=== PATIENT | male | born 1955 | race Caucasian/White ===

== ENCOUNTER → 2017-12-04 08:35 | Outpatient (CLI) | payer OTHER, SELFPAY ==
[2017-12-04 09:37] LABS: AST(SGOT) 23 U/L (15-37); Alanine Aminotransfer ALT/SGPT 45 U/L (16-61); Albumin, Serum 3.8 g/dL (3.2-5.0); Alkaline Phosphatase 72 U/L (45-117); Bilirubin, Direct 0.13 mg/dL (0.00-0.30); Cholesterol 138 mg/dL (200); Globulin 3.7 g/dL (2.2-4.2); High Density Lipoprotein 35 mg/dL; Protein, Total 7.5 g/dL (6.4-8.2); Triglycerides 278 mg/dL; Very Low Density Lipoprotein 56 mg/dL (5-40)
== END ==
PROVIDERS: Family Provider Family Medicine; PCP Family Medicine; Visit Provider Internal Medicine Cardiovascular Disease
DX: E78.5 Hyperlipidemia, unspecified (principal); Z79.899 Other long term (current) drug therapy
CPT/HCPCS: 36415; 80061; 80076

== ENCOUNTER 2018-04-30 11:18 | Observation (INO) | payer OTHER, SELFPAY ==
[2018-04-30] VITALS (22 sets, daily range): BP systolic 119–194; BP diastolic 75–139; PULSE 49–94; RESP 14–22; TEMP 36.1–36.9; O2SAT 95–100; BMI 31.6; BMI 30.4; BMI 30.5
--- NOTE | 2018-04-30 11:26 | EKG12_ITS ---
Test Reason : CP Blood Pressure : / mmHG Vent. Rate : 058 BPM Atrial Rate : 058 BPM P-R Int : 186 ms QRS Dur : 098 ms QT Int : 418 ms P-R-T Axes : 027 032 058 degrees QTc Int : 410 ms Sinus bradycardia Otherwise normal ECG Confirmed by JOY BANDA, BRENNON ([id number]), school photograph editor SALEEM ZAMARRIPA ([id number]) on 05/03/2018 3:03:06 PM Referred By: HERMINIA Confirmed By:BRENNON HAMILTON MD
--- NOTE | 2018-04-30 11:26 | EKG12_ITS ---
Test Reason : CP Blood Pressure : / mmHG Vent. Rate : 056 BPM Atrial Rate : 056 BPM P-R Int : 182 ms QRS Dur : 098 ms QT Int : 416 ms P-R-T Axes : 035 043 048 degrees QTc Int : 401 ms Sinus bradycardia Otherwise normal ECG Confirmed by JOY BANDA, BRENNON ([id number]), primer expeditor and drier SALEEM ZAMARRIPA ([id number]) on 05/03/2018 3:03:23 PM Referred By: Confirmed By:BRENNON HAMILTON MD
--- NOTE | 2018-04-30 11:29 | RAD_ITS ---
STUDY: X-RAY CHEST REASON FOR EXAM: Male, 62 years old. Chest pain. Nausea. TECHNIQUE: AP upright portable view. COMPARISON: 07/30/2016. FINDINGS: No fractures of the sternal wires. The lungs are clear and expanded. There is no demonstrated pleural abnormality. Normal size heart. Normal mediastinum and lucy. Normal visualized pulmonary arteries. Normal visualized aortic arch and descending thoracic aorta. Mild dextroscoliosis of the lower thoracic spine. Normal visualized ribs, clavicles, and shoulders. There is no demonstrated abnormality of the visualized soft tissue structures of the upper abdomen. RAD/Chest 1 View (Portable) IMPRESSION: 1. No acute cardiopulmonary pathology. 2. No significant interval changes when compared to 07/30/2016. Electronically Signed: Jim Loyd MD at 12:08 EDT , Service support ,
--- NOTE | 2018-04-30 11:37 | ED.VISSUMM ---
- ER Visit Summary Date of Service: 04/30/18 Chief Complaint: Chest pain History of Present Illness: The patient is a 62 M with a history of coronary artery disease. He had triple bypass surgery and has 2 cardiac stents since that time. Patient states he has chronic cough which was worse this morning. He has been coughing up clear sputum. This morning had posttussive emesis. He developed chest pain that started under the left breast, and is now radiating towards the right side of the chest. Pain is not worse with deep breath. Physical Examination: Blood pressure is 160/80, temperature 97, heart rate 57, respiratory rate 22, pulse ox 99% on room air. Head and neck examination gross unremarkable. Heart is regular rate and rhythm. Lung sounds are clear. He does not have reproducible tenderness over the anterior chest. Abdomen is soft nontender. Lower extremity examination was no significant calf tenderness or edema. Test Results: EKG is sinus bradycardia 56 bpm with no acute ST change. It was repeated 20 minutes later and remains unchanged. Portable chest x-ray shows no acute pathology. There is no interval change compared to July 2016. CBC and chemistry studies unremarkable. Troponin less than 0.015. Emergency Department Course and Treatment: Patient was given aspirin, morphine, and Zofran. On repeat evaluation he is sitting in a bedside chair wrapped in blankets. He states he is still having pain across his lower chest is complaining of the cold air blowing on him. He will be given an additional dose of morphine. Will be admitted for cycling of cardiac enzymes and further cardiac evaluation. Treatment Plan: [] Disposition: Admit Impression: Chest pain This note was generated with [employer] dictation software. It may contain incorrect words, spelling, and punctuation that were not noted in review of the chart prior to signing ED Disposition - Plan for ED Patient: Chief Complaint: Chest Pain Referrals: Anna Camacho MD [Primary Care Provider] -
--- NOTE | 2018-04-30 11:55 | ED.RN ---
attempt x 2 by this nurse and 3 other attempts per other nurses
--- NOTE | 2018-04-30 11:59 | NURSING ---
LABS CLOTTED AND HEMOLIZED
[2018-04-30] MEDS: 0.9% Normal Saline 1,000 ML 150 ML IV (12:01)
[2018-04-30] MEDS: Aspirin 81 MG TAB.CHEW 324 MG PO (12:01)
[2018-04-30] MEDS: Morphine 4 MG/ML Syringe IV ×2 (12:01→13:04)
[2018-04-30] MEDS: Ondansetron 4 MG/2 ML Vial IV ×3 (12:01→15:45)
[2018-04-30 12:18] LABS: Absolute Lymphocyte Count 1.43 X10^3/ul (0.83-4.51); Absolute Neutrophil Count 7.3 X10^3/uL (2.0-7.7); Basophil# 0.01 X10^3/uL; Basophil% 0.1 % (0-1); Eosinophil# 0.04 X10^3/uL; Eosinophils% 0.4 % (0-5); Hemoglobin 15.1 g/dl (13.0-16.5); Lymphocyte # 1.43 X10^3/ul (4.0); Lymphocyte % 15.5 % (19-41); Mean Corp Hgb Conc 35.1 g/gl (32-36); Mean Corpuscular Hgb 30.4 pg (27.0-32.0); Mean Corpuscular Volume 86.7 fL (80-94); Mean Platelet Vol. 9.5 fl (6.2-12.0); Monocyte# 0.38 X10^3/uL; Monocyte% 4.1 % (0-10); Neutrophil # 7.32 X10^3/uL (2.7-7.7); Neutrophil % 79.7 % (47-70); Platelet Count 252 K/mm3 (150-450); RBC Distribution Width CV 12.9 % (11.6-14.6); RBC Distribution Width SD 40.2 fl (35.1-43.9); Red Blood Count 4.96 M/mm3 (4.6-6.2); White Blood Count 9.2 K/mm3 (4.4-11.0)
[2018-04-30 12:21] LABS: POSITIVE COUNT NO; POSITIVE DIFFERENTIAL NO; POSITIVE MORPHOLOGY NO
[2018-04-30 12:34] LABS: Anion Gap 10 (5-15); BUN 15 mg/dL (7-18); BUN/Creat Ratio 15.5 RATIO (10-20); Calcium,Total 8.8 mg/dL (8.5-10.1); Chloride 107 mmol/L (98-107); Creatinine, Serum 0.97 mg/dL (0.70-1.30); EST Glomerular Filtration Rate 83 mL/min (>60); Est Glom Filt Rate - Afr Amer 101 mL/min (>60); Estimated Creatinine Clearance 75.41 ml/min; Glucose 123 mg/dL (74-106); Potassium 3.8 mmol/L (3.5-5.1); Sodium Level 141 mmol/L (136-145)
--- NOTE | 2018-04-30 13:21 | NURSING ---
Pepper notified patient may transfer to PCU.
--- NOTE | 2018-04-30 13:58 | EKG12_ITS ---
Test Reason : Blood Pressure : / mmHG Vent. Rate : 051 BPM Atrial Rate : 051 BPM P-R Int : 190 ms QRS Dur : 098 ms QT Int : 462 ms P-R-T Axes : 024 038 051 degrees QTc Int : 425 ms Sinus bradycardia with sinus arrhythmia Otherwise normal ECG Confirmed by YOLIS BANDA, BELEN ([id number]), brands editor SALEEM ZAMARRIPA ([id number]) on 05/06/2018 2:13:08 PM Referred By: VILLA Confirmed By:BELEN LAGOS MD
--- NOTE | 2018-04-30 13:58 | NURSING ---
111 CP JESSICA OBS
[2018-04-30] MEDS: Ketorolac 30 MG/ML Syringe IV (14:04)
--- NOTE | 2018-04-30 14:06 | CT_ITS ---
STUDY: CTA CHEST REASON FOR EXAM: Male, 62 years old. Possible aortic dissection. RADIATION DOSAGE (If Supplied By Facility): CTDIvol = ( 16.63 ) mGy, DLP = ( 791.21 ) mGycm TECHNIQUE: The examination was performed with the intravenous administration of 100ML ml of Isovue 300 contrast material. Post-processing of the angiographic images was performed, with multiplanar reformation and 3D reconstruction. Individualized dose optimization techniques were used for this CT. COMPARISON: Comparison is made with prior chest radiograph done earlier today. FINDINGS: Normal enhancement of the main pulmonary artery and right and left pulmonary arteries. Normal enhancement of the bilateral peripheral pulmonary arteries. There is no demonstrated pulmonary embolism. There is atherosclerotic calcification of the aortic arch with tortuosity. There is no demonstrated aortic dissection. There are calcifications of the coronary arteries. Sternal cerclage wires and vascular clips are present from a prior sternotomy and coronary artery bypass graft procedure (CABG). There are visualized mediastinal lymph nodes, which are within normal size limits, and with normal morphology. Normal hilar regions. Normal visualized trachea and bronchi. The lungs are well expanded. Normal pulmonary parenchyma. Normal pleura. Normal chest wall structures. There are degenerative changes of thoracic spine. Small hiatal hernia. There is a 1.8 cm x 1.3 cm nodule in the left adrenal gland. This most likely represents a small adrenal adenoma. CT/CTA Chest W/WO Contrast IMPRESSION: No acute abnormality is seen. There is no evidence of aortic dissection. Electronically Signed: Ramy Travis MD at 15:03 EDT Tel [phone], Service support ,
--- NOTE | 2018-04-30 14:21 | NURSING ---
ICU 3
--- NOTE | 2018-04-30 14:26 | HP.PCM_ITS ---
Problem List (1) Chest pain at rest Status: Acute (2) Hypertension Status: Chronic (3) Hx of CABG Status: Chronic (4) Hx of heart artery stent Status: Chronic (5) Unstable angina Status: Acute History of Present Illness Date of Admission: 04/30/18 Chief Complaint: Chest pain at rest. Patient is a 62 year old M with a significant history of CAD status post CABG in 2008; and 2 stents in 2011 who follows outpatient with cardiology presenting with excruciating chest pain started the morning of admission. His pain is located mid sternum. He describes the pain to be severity 7 to 8 out of 10. There are no aggravating or relieving factors. The pain is present at rest. He describes his pain as sharp. Previous episodes of this type of chest pain has been relieved with food. However today's chest pain has not been relieved with food. He reports posttussive emesis. He reports severe diaphoresis. At the ED he was given 4 tablets of aspirin. He reports that he took his daily aspirin and daily Plavix at home today. At the ED the patient received a morphine for his pain without any relief. [] Past Medical History Past Medical History (Chronic Problems): Chronic Problems (Last Reviewed 12/14/17 @ 13:35 by Kimberlyn Wilkins) Hx of CABG (Chronic) Hx of heart artery stent (Chronic) Atherosclerotic heart disease of [place] coronary artery without angina pectoris (Chronic) CABG x3-MITCHELL to 1st DX, CHRISTINE from the MITCHELL to LAD, reverse SVG to the distal CX 02/15/09 Aortocoronary bypass status (Chronic ~02/15/09) CABG x3-MITCHELL to 1st DX, CHRISTINE from the MITCHELL to LAD, reverse SVG to the distal CX 02/15/09 Presence of stent in coronary artery (Chronic ~10/11/12) PTCA/DRAGAN of the OM2 and of the mid CX 10/11/12 Hypertension (Chronic) Hyperlipidemia (Chronic) Medical History: Medical History (Last Reviewed 12/14/17 @ 13:35 by Kimberlyn Wilkins) Atherosclerotic heart disease of [place] coronary artery without angina pectoris (Chronic) I25.10 CABG x3-MITCHELL to 1st DX, CHRISTINE from the MITCHELL to LAD, reverse SVG to the distal CX 02/15/09 Long-term use of high-risk medication (Acute) Z79.899 Presence of stent in coronary artery (Chronic) Onset Date: ~10/11/12 Z95.5 PTCA/DRAGAN of the OM2 and of the mid CX 10/11/12 Syncope and collapse (Acute) R55 Hypertension (Chronic) I10 Hyperlipidemia (Chronic) E78.5 GERD (gastroesophageal reflux disease) K21.9 Hiatal hernia K44.9 History of tobacco use Z87.891 Gastroesophageal reflux disease (Inactive) K21.9 History of tobacco use (Inactive) Z87.891 Allergies Tetanus Vaccines and Toxoid [Tetanus Vaccines & Toxoid] Allergy (Unknown, Verified 04/30/18 11:24) Unknown pt. was a child & does not remember prochlorperazine Adverse Reaction (Verified 04/30/18 11:24) Vomiting Home Medications: Ambulatory Orders Medication Instructions Recorded Loratadine [Claritin] 10 mg PO DAILY PRN 10/24/13 azelastine 0.15 % (205.5 mcg) 1 spray INTRANASAL BID 12/11/17 nasal spray fluticasone 50 mcg/actuation nasal 50 mcg INTRANASAL BID PRN 12/14/17 spray,suspension ipratropium bromide 0.03 % nasal 2 spray INTRANASAL BID-TID PRN 12/14/17 spray nitroglycerin 0.4 mg sublingual 0.4 mg SUBLINGUAL Q5M PRN #25 tab 12/14/17 tablet Aspirin E.C. [Ecotrin] 81 mg PO DAILY 04/30/18 Atorvastatin Calcium [Lipitor] 40 mg PO QDAY 04/30/18 Clopidogrel Bisulfate [Plavix] 75 mg PO DAILY 04/30/18 Isosorbide Mononitrate [Imdur] 30 mg PO DAILY 04/30/18 Lisinopril [Zestril] 10 mg PO DAILY 04/30/18 Metoprolol Tartrate [Lopressor 25 mg PO BID 04/30/18 (beta elmer)] Surgical History: Surgical History (Last Reviewed 12/14/17 @ 13:35 by Kimberlyn Wilkins) Aortocoronary bypass status (Chronic) Onset Date: ~02/15/09 Z95.1 CABG x3-MITCHELL to 1st DX, CHRISTINE from the MITCHELL to LAD, reverse SVG to the distal CX 02/15/09 History of hernia repair Z98.890, Z87.19 Smoking Status: Former smoker Tobacco Use: Non-smoker Alcohol: Occasional Drugs: Marijuana - *Family History Maternal Family History: Family History (Last Reviewed 12/14/17 @ 13:35 by Kimberlyn Wilkins) Father Hypertension Mother Hypertension Myocardial infarction Brother Hypertension Sister Hypertension Review of Systems Constitutional: Reports: - - Diaphoresis HEENT: Denies: Head Aches, Sinus Congestion, Sinus Drainage Cardiovascular: Reports: Chest Pain Respiratory: Reports: Cough Gastrointestinal: Reports: Nausea, Vomiting Genitourinary: Denies: Dysuria Musculoskeletal: Denies: Joint Pain, Joint Tenderness Skin: Denies: Rash, Wounds Neurological: Reports: Balance problems Psychiatric: Reports: Anxiety Hematologic/ Lymphatic: Reports: Adenopathy VTE Information - Inpt Only VTE Present on Admission: No VTE Mechan Device Prophylaxis: None VTE Pharm Prophylaxis ordered?: Yes Patient Problems: Active and Suspected Problems (Last Reviewed 12/14/17 @ 13:35 by Kimberlyn Wilkins) Chest pain at rest (Acute) Unstable angina (Acute) - Physical Exam General: Alert, Oriented x3, Cooperative HEENT: Atraumatic, PERRLA, EOMI, Normocephalic Neck: Supple, No JVD, Negative Carotid Bruits Lungs: Clear to auscultation, Normal air movement Cardiovascular: Regular rate, No murmurs, - - Tender at Xiphoid process Abdomen: Bowel Sounds Present, Soft, Non Tender Extremities: No edema, Capillary Refill Less than 3 Seconds Skin: No rashes, No breakdown Musculoskeletal: No Tenderness to Palpation of Joints or Extremities Neurological: Cranial nerves II-XII grossly intact Psych/Mental Status: Anxious Vital Signs Temp Pulse Resp BP Pulse Ox 97 F L 64 18 172/92 H 95 04/30/18 11:19 04/30/18 13:50 04/30/18 12:36 04/30/18 13:50 04/30/18 12:36 Assessment/Plan All Active Problems (Last Reviewed 12/14/17 @ 13:35 by Kimberlyn Wilkins) Chest pain at rest (Acute) Unstable angina (Acute) Long-term use of high-risk medication (Acute) Syncope and collapse (Acute) This is this is a 61 year old man with a significant history of CAD status post CABG and stents who presented because of excruciating chest pain at rest and with a posttussive emesis. 1. Unstable Angina CT scan with contrast was unremarkable for dissection. ISAAC score of UA is 4 points. Troponin so far unremarkable. EKG so far unremarkable. Morphine and nitroglycerin SL initially produced no relieve. Toradol and GI cocktail was not helpful to patient Cardiology is following. Recommended heparin drip and nitroglycerin drip. Ordered as recommended. A1C and lipid profile ordered Urine drug screen Fasting lipids Continue Lipitor, metoprolol and lisinopril. Will hold off nitro SL and Imdur in the setting of Nitro drip. Continue morphine and aspirin. As needed oxygen. Ultrasound of gallbladder and liver function tests ordered to rule out gallbladder disease. 2.Hypertension Continue lisinopril and metoprolol Nitroglycerin drip as above. 3.DVT prophylaxis Not indicated in the setting of Heparin therapeutic infusion. Code Visit OBSV E&M: [id number] Initial observation care L3
[2018-04-30] MEDS: Morphine 2 MG/ML Syringe IV (15:43)
[2018-04-30 16:14] LABS: Hemoglobin A1c 5.9 % (4.2-6.3)
[2018-04-30 16:29] LABS: Amphetamine Urine VISTA NEGATIVE (<1000 ng/mL); Barbiturate Urine VISTA NEGATIVE (< 200 ng/mL); Benzodiazepine Urine VISTA NEGATIVE (< 200 ng/mL); Cocaine Urine VISTA NEGATIVE (< 300 ng/mL); Ecstacy Urine VISTA NEGATIVE (< 500 ng/mL); Methadone Urine VISTA NEGATIVE (< 300 ng/mL); PCP Urine VISTA NEGATIVE (< 25 ng/mL); THC Urine VISTA POSITIVE (< 50 ng/mL); Vista UDS pH Range 7
--- NOTE | 2018-04-30 16:36 | US_ITS ---
STUDY: ABDOMINAL ULTRASOUND - RIGHT UPPER QUADRANT REASON FOR VISIT: Male, 62 years old. Rule out cholelithiasis TECHNIQUE: Ultrasound evaluation of the right upper quadrant was performed with real-time and static pichardo-scale imaging. TECHNICAL QUALITY: Limited. Examination limited by bowel gas. COMPARISON: None. FINDINGS: Liver: The liver measures 20 cm. There is increased echogenicity consistent with fatty infiltration. The bile ducts are within normal limits. There is hepatic color flow. The direction of portal flow is hepatopetal. There appears to be a small anechoic liver cyst in the right lobe measuring 1.2 x 1.0 x 0.7 cm Gallbladder: Normal distended gallbladder. The gallbladder wall measures 2 mm. There is a negative sonographic Clemente's sign. There is no pericholecystic fluid. There are no gallstones. Common Bile Duct (C.B.D.): The common bile duct measures 6 mm. Pancreas: Normal size of the head, body and tail of the pancreas. There is normal echogenicity of the pancreas. There is no demonstrated pancreatic mass or cyst. Right Kidney: Normal size of the right kidney. The right kidney measures 11.9 cm. Normal renal cortex. The right cortex measures 2.1 cm. There is no demonstrated renal mass or cyst. There is no right hydronephrosis. US/Gallbladder IMPRESSION: No evidence of cholelithiasis. No evidence of acute cholecystitis. Remainder as above Electronically Signed: Lavelle Escoto DO at 18:40 EDT Tel , Service support ,
[2018-04-30 18:07] LABS: International Normalized Ratio 1.1; Prothrombin Time (Protime)PT. 13.7 SECONDS (11.7-14.9)
[2018-04-30 18:08] LABS: Partial Thromboplast Time 27.5 Seconds (24.1-36.2)
[2018-04-30 18:26] LABS: AST(SGOT) 23 U/L (15-37); Alanine Aminotransfer ALT/SGPT 38 U/L (16-61); Albumin, Serum 4.3 g/dL (3.2-5.0); Alkaline Phosphatase 68 U/L (45-117); Globulin 3.9 g/dL (2.2-4.2); Protein, Total 8.2 g/dL (6.4-8.2)
[2018-04-30] MEDS: Heparin Injection (Vial) 5,000 UNIT/ML VIAL 6000 UNIT IV (18:35)
[2018-04-30] MEDS: HEPARIN/D5w 25,000 UNITS 25,000 UNITS/250 ML IV.SOLN. 12 UNITS IV (18:39)
--- NOTE | 2018-04-30 20:45 | NURSING ---
Dr. De Souza called and talked to this nurse and received update on pt. Pt. doing well , no further CP on nitro gtt.
[2018-04-30] MEDS: Metoprolol Tartrate 25 MG Tablet PO (21:36)
[2018-04-30] MEDS: Atorvastatin Calcium 40 MG Tablet PO (21:36)
[2018-05-01] VITALS (31 sets, daily range): BP systolic 121–148; BP diastolic 65–95; PULSE 52–64; RESP 12–22; TEMP 36.4–37.1; O2SAT 95–100
[2018-05-01 01:18] LABS: Partial Thromboplast Time 50.3 Seconds (24.1-36.2)
[2018-05-01] MEDS: Heparin Injection (Vial) 5,000 UNIT/ML VIAL IV (02:09)
[2018-05-01] MEDS: Aspirin E.C. 81 MG Tablet PO (08:55)
[2018-05-01] MEDS: Clopidogrel Bisulfate 75 MG Tablet PO (08:56)
[2018-05-01] MEDS: Lisinopril 10 MG Tablet PO (08:56)
[2018-05-01 08:58] LABS: Hematocrit 39.9 % (40-54); Hemoglobin 13.9 g/dl (13.0-16.5); Mean Corp Hgb Conc 34.8 g/gl (32-36); Mean Corpuscular Hgb 30.7 pg (27.0-32.0); Mean Corpuscular Volume 88.1 fL (80-94); Mean Platelet Vol. 9.6 fl (6.2-12.0); Platelet Count 232 K/mm3 (150-450); RBC Distribution Width CV 13.2 % (11.6-14.6); Red Blood Count 4.53 M/mm3 (4.6-6.2); White Blood Count 10.2 K/mm3 (4.4-11.0)
[2018-05-01 09:04] LABS: Scan Indicated on CBC? Y/N NO
[2018-05-01 09:06] LABS: Partial Thromboplast Time 53.7 Seconds (24.1-36.2)
[2018-05-01 09:32] LABS: Anion Gap 8 (5-15); BUN 17 mg/dL (7-18); BUN/Creat Ratio 19.9 RATIO (10-20); Calcium,Total 8.5 mg/dL (8.5-10.1); Chloride 104 mmol/L (98-107); Cholesterol 150 mg/dL (200); Creatinine, Serum 0.86 mg/dL (0.70-1.30); EST Glomerular Filtration Rate 96 mL/min (>60); Est Glom Filt Rate - Afr Amer 116 mL/min (>60); Estimated Creatinine Clearance 85.06 ml/min; Glucose 109 mg/dL (74-106); High Density Lipoprotein 34 mg/dL; Potassium 3.7 mmol/L (3.5-5.1); Sodium Level 140 mmol/L (136-145); Triglycerides 158 mg/dL; Very Low Density Lipoprotein 32 mg/dL (5-40)
[2018-05-01] MEDS: Metoprolol Tartrate 25 MG Tablet PO ×2 (10:59→21:48)
--- NOTE | 2018-05-01 11:11 | CON.PCM_ITS ---
Problem List (1) Unstable angina Status: Acute Reason for Consult Date of Consultation: 05/01/18 History of Present Illness: The patient is a 62 year old M with past medical history significant for coronary artery disease status post coronary artery bypass graft surgery with MITCHELL graft to the left anterior descending artery, a free CHRISTINE off the MITCHELL graft to the diagonal branch and an SVG graft to the totally occluded right coronary artery. He has had repeat angiography done in 2011. At that time, he had drug-eluting stents placed to his left circumflex and obtuse marginal branch. For the past few months, the patient has been having anterior chest discomfort. According to the patient, this is mostly the first thing when he wakes up in the morning. Relieved by itself. Not related to exertion. No exertional component. No associated shortness of breath. Yesterday, the patient had another such episode. However this time it was prolonged. Constant discomfort for a few hours. According to the patient, his discomfort is mostly relieved but he could still feel it. X Per patient, he has had similar symptoms in the past. At one time, when he had the symptoms, he had cardiac workup done and ended up having a coronary artery bypass graft surgery. Later on, he has had similar symptoms and had percutaneous intervention to his left circumflex and obtuse marginal done. With every revascularization, the symptoms tend to disappear for a few years. [ ] Past Medical History Allergies/Adverse Reactions: Allergies Tetanus Vaccines and Toxoid [Tetanus Vaccines & Toxoid] Allergy (Unknown, Verified 04/30/18 11:24) Unknown pt. was a child & does not remember prochlorperazine Adverse Reaction (Verified 04/30/18 11:24) Vomiting Home Medications: Ambulatory Orders Medication Instructions Recorded Loratadine [Claritin] 10 mg PO DAILY PRN 10/24/13 azelastine 0.15 % (205.5 mcg) 1 spray INTRANASAL BID 12/11/17 nasal spray fluticasone 50 mcg/actuation nasal 50 mcg INTRANASAL BID PRN 12/14/17 spray,suspension ipratropium bromide 0.03 % nasal 2 spray INTRANASAL BID-TID PRN 12/14/17 spray nitroglycerin 0.4 mg sublingual 0.4 mg SUBLINGUAL Q5M PRN #25 tab 12/14/17 tablet Aspirin E.C. [Ecotrin] 81 mg PO DAILY 04/30/18 Atorvastatin Calcium [Lipitor] 40 mg PO QDAY 04/30/18 Clopidogrel Bisulfate [Plavix] 75 mg PO DAILY 04/30/18 Isosorbide Mononitrate [Imdur] 30 mg PO DAILY 04/30/18 Lisinopril [Zestril] 10 mg PO DAILY 04/30/18 Metoprolol Tartrate [Lopressor 25 mg PO BID 04/30/18 (beta elmer)] Past Medical History (Chronic Problems): Chronic Problems (Last Reviewed 12/14/17 @ 13:35 by Kimberlyn Wilkins) Hx of CABG (Chronic) Hx of heart artery stent (Chronic) Atherosclerotic heart disease of [place] coronary artery without angina pectoris (Chronic) CABG x3-MITCHELL to 1st DX, CHRISTINE from the MITCHELL to LAD, reverse SVG to the distal CX 02/15/09 Aortocoronary bypass status (Chronic ~02/15/09) CABG x3-MITCHELL to 1st DX, CHRISTINE from the MITCHELL to LAD, reverse SVG to the distal CX 02/15/09 Presence of stent in coronary artery (Chronic ~10/11/12) PTCA/DRAGAN of the OM2 and of the mid CX 10/11/12 Hypertension (Chronic) Hyperlipidemia (Chronic) - *Family History Maternal Family History: Family History (Last Reviewed 12/14/17 @ 13:35 by Kimberlyn Wilkins) Father Hypertension Mother Hypertension Myocardial infarction Brother Hypertension Sister Hypertension Smoking Status: Former smoker Tobacco Use: Non-smoker Alcohol: Occasional Drugs: Marijuana Review of Systems - Review of Systems General: Denies: Fever, Chills HEENT: Denies: Head Aches Cardiovascular: Reports: Chest Discomfort at Rest. Denies: Shortness of Breath at Rest, Shortness of Breath with Exertion, Orthopnea, PND Gastrointestinal: Reports: Emesis - Yesterday with chest discomfort. Denies: Hematemesis, Melena Neurological: Denies: History of TIA, History of CVA Hematologic/ Lymphatic: Denies: Easy Brusing, Easy Bleeding Subjectve: Comfortable. No apparent distress Objective: Vital Signs Temp Pulse Resp BP Pulse Ox 98.5 F 60 18 138/79 H 100 05/01/18 10:00 05/01/18 10:59 05/01/18 10:00 05/01/18 10:00 05/01/18 10:00 Oxygen Flow Rate (L/min) 2 Oxygen Delivery Method Nasal Cannula Weight: 90.9 kg Body Mass Index (BMI) 30.4 Intake and Output for Last 24 Hours 04/29/18 04/30/18 05/01/18 23:59 23:59 23:59 Intake Total 899.8 / 899.8 0 / 0 Output Total 200 / 200 Balance 699.8 / 699.8 0 / 0 General: Healthy Appearing, Awake, Alert, Oriented x 3, No Acute Distress HEENT: Atraumatic, Normocephalic Oral: Moist Mucosa Neck: Supple, No JVD Lungs: Clear to auscultation Cardiovascular: Regular Rhythm, Normal S1, Normal S2 Abdomen: Bowel Sounds Present, Soft, Non Tender Extremities: No edema Neurological: No Focal Motor or Sensory Deficit Psych/Mental Status: Appropriate 04/30/18 15:03: Troponin I < 0.015 04/30/18 17:25: Troponin I < 0.015 04/30/18 17:25: PT 13.7, INR 1.1, APTT 27.5 04/30/18 17:25: Total Bilirubin 1.10 H, Direct Bilirubin 0.20 05/01/18 00:50: APTT 50.3 H 05/01/18 08:40: WBC 10.2, RBC 4.53 L, Hgb 13.9, Hct 39.9 L, MCV 88.1, MCH 30.7, MCHC 34.8, RDW 13.2, RDW Differential 42.0, Plt Count 232, MPV 9.6 05/01/18 08:40: Sodium 140, Potassium 3.7, Chloride 104, Carbon Dioxide 28.0, Anion Gap 8, BUN 17, Creatinine 0.86, Est GFR (MDRD) Af Amer 116, Est GFR (MDRD ) Non-Af 96, BUN/Creatinine Ratio 19.9, Glucose 109 H, Calcium 8.5, Triglycerides 158, Cholesterol 150, LDL Cholesterol 84, VLDL Cholesterol 32, HDL Cholesterol 34 L 05/01/18 08:40: APTT 53.7 H Rhythm: EKG: Normal sinus rhythm. No ischemic changes ECHO: Stress Test: Cardiac Cath: PCI: CT Surgery: Holter monitor: EPS: PPM: CXR: Chest CT Scan: Assessment/Plan 1. Episode of prolonged chest discomfort. Even though troponins are negative, patient's history strongly suggestive of cardiac component. It is noted that previous such episodes have led to findings of coronary ischemia and revascularization. I therefore offered patient cardiac catheterization with coronary angiography and possible revascularization. Risks benefits and alternatives explained. He understands and wishes to proceed 2. Unstable angina. See #1 above 3. Hypertension 4. Dyslipidemia 5. Small adrenal adenoma noted on CT scan. Follow as per internal medicine
--- NOTE | 2018-05-01 12:26 | CM.UR ---
In-network hospitals in case transfer is necessary. Per [email or web address] the following facilities are in-network (but not limited to): [facility] Contact case management with any additional questions.
[2018-05-01] MEDS: 0.9% NaCl Peripheral Flush Adult/Peds IV (13:00)
--- NOTE | 2018-05-01 14:34 | CL.D_ITS ---
Patient Name: YOLY FOWLER Study Date: 05/01/2018 Performing: Ward De Souza MD Ht: 68 inches 173 cm : 1955 Wt: 200.9 lbs 91 kg Age: 62 Gender: male BSA: 2.05 PROCEDURE(S) PERFORMED II61-PUF/COR/CABG CLINICAL PROFILE AND INDICATIONS Heart Failure: None Angina Classification Anginal Classification w/in 2 Weeks: CCS IV CAD Presentations: Unstable angina. CONCLUSIONS [place] LAD 95% supplying major septal electrical engineering manager; 100% Mid LAD; MITCHELL to LAD patent Free CHRISTINE (from MITCHELL) to D1 patent 50% Prox LCX. Stents to Mid LCX and Prox OM2 patent 100% Prox/Mid RCA. SVG to RCA 50% eccentric lesion RECOMMENDATIONS Maximize medical treatment If still symptomatic after maximal medical treatment, then consider PCI to Mid LAD DESCRIPTION OF PROCEDURE The patient arrived to the procedure lab. The risks and benefits of the procedure as well as a full d escription of our services here and current unavailability of surgical backup were fully explained to the patient and/or their significant other prior to the catheterization. The Timeout was completed, verifying the correct patient and procedure. The patient's procedural site was prepped and draped in the usual fashion. Local anesthetic was given subcutaneously to right radial region with Lidocaine 2% . Using a modified Seldinger technique, arterial access was obtained via the right radial artery, a 6 Fr sheath was inserted. Left Coronary Artery selective angiography was performed in multiple views u sing a 5 Fr. 4.0 [place] catheter. Right Coronary Artery selective angiography was then performed in mu ltiple views using a 5 Fr. 4.0 [place] catheter. Saphenous Vein graft to the RCA selective angiography was performed in multiple views using a 6 Fr. MPB2. Left internal mammary artery graft to the LAD lary ective angiography was performed in multiple views using a 5 Fr. IM catheter.The arterial sheath was pulled and a TR Band was applied for hemostasis 14cc air CORONARY ANGIOGRAPHY DOMINANCE: Right Dominant LEFT MAIN: No significant angiograpic disease LEFT ANTERIOR DECENDING ARTERY: 95% Mid tandom lesions. 100% immediatley after take off of major sept al electrical engineering manager CIRCUMFLEX ARTERY: 50% Prox. Stent to Mid LCX widely patent. Stent to OM2 patent RIGHT CORONARY ARTERY: 100% Mid GRAFTS: MITCHELL graft to the LAD patent. Free CHRISTINE (from MITCHELL) to D1 patent Saphenous Vein graft to the RCA 40-50% eccentric lesion COMPLICATIONS No Complications PROCEDURE MEDICATIONS Versed 1 mg IV Fentanyl 25 mcg IV Oxygen: 2 L/min via nasal cannula Heparin given IA 05/01/2018 13:32:55 Verapamil 2.5mg, Ntg 100mcgs, 2000 units of Heparin given IA 05/01/2018 13:32:55 SUMMARY OF HEMODYNAMIC DATA Time AIR REST ECG 13:19:11 AO 116/67 (87) SA 13:34:53 Signed By Ward De Souza MD On 05/01/2018 14:33:34 Ward De Souza MD
--- NOTE | 2018-05-01 16:46 | PN_ITS ---
Patient Problems: Active and Suspected Problems (Last Reviewed 12/14/17 @ 13:35 by Kimberlyn Wilkins) Chest pain at rest (Acute) Unstable angina (Acute) Subjective: Patient while on heparin and nitroglycerin drip stated that his chest pain has decreased but it is noticeable. Vitals/I&O's: Vital Signs Temp Pulse Resp BP Pulse Ox 97.7 F L 53 L 17 123/88 H 96 05/01/18 16:00 05/01/18 16:00 05/01/18 16:00 05/01/18 16:00 05/01/18 16:00 Oxygen Flow Rate (L/min) 2 Oxygen Delivery Method Room Air Weight: 90.9 kg Body Mass Index (BMI) 30.4 Intake and Output for Last 24 Hours 04/29/18 04/30/18 05/01/18 23:59 23:59 23:59 Intake Total 899.8 / 899.8 190 / 190 Output Total 200 / 200 520 / 520 Balance 699.8 / 699.8 -330 / -330 General: Alert, Oriented x3, Cooperative HEENT: Atraumatic, PERRLA, EOMI, Normocephalic Neck: Supple, No JVD, Negative Carotid Bruits Lungs: Clear to auscultation, Normal air movement Cardiovascular: No murmurs, Bradycardic, No rub noted, No Gallop Abdomen: Bowel Sounds Present, Soft, Non Tender Extremities: No edema, Capillary Refill Less than 3 Seconds Skin: No rashes, No breakdown Musculoskeletal: No Tenderness to Palpation of Joints or Extremities Neurological: Cranial nerves II-XII grossly intact Laboratory Results 04/30/18 17:25: Troponin I < 0.015 04/30/18 17:25: PT 13.7, INR 1.1, APTT 27.5 04/30/18 17:25: Total Bilirubin 1.10 H, Direct Bilirubin 0.20, AST 23, ALT 38, Alkaline Phosphatase 68, Total Protein 8.2, Albumin 4.3, Globulin 3.9 05/01/18 00:50: APTT 50.3 H 05/01/18 08:40: WBC 10.2, RBC 4.53 L, Hgb 13.9, Hct 39.9 L, MCV 88.1, MCH 30.7, MCHC 34.8, RDW 13.2, RDW Differential 42.0, Plt Count 232, MPV 9.6 05/01/18 08:40: Sodium 140, Potassium 3.7, Chloride 104, Carbon Dioxide 28.0, Anion Gap 8, BUN 17, Creatinine 0.86, Estim Creat Clear Calc 85.06, Est GFR ( MDRD) Af Amer 116, Est GFR (MDRD) Non-Af 96, BUN/Creatinine Ratio 19.9, Glucose 109 H, Calcium 8.5, Triglycerides 158, Cholesterol 150, LDL Cholesterol 84, VLDL Cholesterol 32, HDL Cholesterol 34 L 05/01/18 08:40: APTT 53.7 H Current Medications Aspirin (Ecotrin) 81 mg PO DAILYCM [facility] Last Admin: 05/01/18 08:55 Dose: 81 mg Atorvastatin Calcium (Lipitor) 40 mg PO HS [facility] Last Admin: 04/30/18 21:36 Dose: 40 mg Azelastine HCl (Astelin) 1 spray NASAL BID [facility] Last Admin: 05/01/18 08:58 Dose: Not Given Clopidogrel Bisulfate (Plavix) 75 mg PO DAILY [facility] Last Admin: 05/01/18 08:56 Dose: 75 mg Fluticasone Propionate (Flonase Nasal [place]) 1 spray NASAL BID PRN PRN Reason: ALLERGIES Heparin Sodium (Porcine) (Heparin Na) 0 unit IV UD PRN PRN Reason: Protocol Last Admin: 05/01/18 02:09 Dose: 1,000 units Ipratropium [place] (Atrovent Nasal [place] (G)) 2 spray NASAL TID PRN PRN Reason: ALLERGIES Isosorbide Mononitrate (Imdur) 60 mg PO DAILY [facility] Lisinopril (Zestril) 10 mg PO DAILY [facility] Last Admin: 05/01/18 08:56 Dose: 10 mg Loratadine (Claritin) 10 mg PO DAILY PRN PRN Reason: ALLERGIES Magnesium Hydroxide (Milk Of Magnesia) 30 ml PO DAILY PRN PRN Reason: Constipation Metoprolol Tartrate (Lopressor (Beta Antonio)) 25 mg PO BID [facility] Last Admin: 05/01/18 10:59 Dose: 25 mg Morphine Sulfate () 2 mg IV Q2H PRN PRN PRN Reason: PAIN Last Admin: 04/30/18 15:43 Dose: 2 mg Nutritional Formula (Lactose Free) (Ensure Clear) 120 ml PO 4X/DAY [facility] Ondansetron HCl (Zofran) 4 mg IV Q6H PRN PRN PRN Reason: NAUSEA/VOMITING Last Admin: 04/30/18 15:45 Dose: 4 mg Pantoprazole Sodium (Protonix) 20 mg PO DAILY [facility] Ranolazine (Ranexa) 500 mg PO BID [facility] Sodium Chloride () 5 - 30 ml IV UD PRN PRN Reason: SALINE FLUSH Last Admin: 05/01/18 13:00 Dose: 10 ml Medical Necessity - Tobacco Use Smoking Status: Former smoker Tobacco Use: Non-smoker Assessment/Plan All Active Problems (Last Reviewed 12/14/17 @ 13:35 by Kimberlyn Wilkins) Chest pain at rest (Acute) Unstable angina (Acute) Long-term use of high-risk medication (Acute) Syncope and collapse (Acute) This is this is a 61 year old man with a significant history of CAD status post CABG and stents who presented because of excruciating chest pain at rest and with a posttussive emesis. 1. Unstable Angina CT scan with contrast was unremarkable for dissection. ISAAC score of UA 4 points. Troponin so far unremarkable. EKG so far unremarkable. Ultrasound of gall bladder unremarkable Morphine and nitroglycerin SL initially produced no relieve. Toradol and GI cocktail was not helpful to patient Cardiology is following. Patient has been on heparin drip and nitroglycerin drip. Cardiology will take patient in for a cardiac cath A1C was unremarkable Fasting lipids not remarkable Continue Lipitor, metoprolol and lisinopril. Will hold off nitro SL and Imdur in the setting of Nitro drip. Continue morphine and aspirin. As needed oxygen. 2.Hypertension Continue lisinopril and metoprolol Nitroglycerin drip as above. 3.DVT prophylaxis Not indicated in the setting of Heparin therapeutic infusion.
[2018-05-01] MEDS: Ranolazine 500 MG Tablet PO ×2 (17:00→21:49)
[2018-05-01] MEDS: Pantoprazole Sodium 20 MG Tablet PO (17:00)
[2018-05-01] MEDS: Isosorbide Mononitrate 60 MG Tablet PO (17:48)
[2018-05-01] MEDS: Azelastine HCl NASAL.SRY 1 SPRAY NASAL (21:46)
[2018-05-01] MEDS: Atorvastatin Calcium 40 MG Tablet PO (21:48)
[2018-05-02] VITALS (8 sets, daily range): BP systolic 104–122; BP diastolic 57–74; PULSE 47–60; RESP 16–19; TEMP 36.4–36.9; O2SAT 94–97
[2018-05-02 05:49] LABS: Absolute Lymphocyte Count 2.44 X10^3/ul (0.83-4.51); Absolute Neutrophil Count 4.9 X10^3/uL (2.0-7.7); Basophil# 0.01 X10^3/uL; Basophil% 0.1 % (0-1); Eosinophil# 0.09 X10^3/uL; Eosinophils% 1.1 % (0-5); Hemoglobin 13.8 g/dl (13.0-16.5); Lymphocyte # 2.44 X10^3/ul (4.0); Lymphocyte % 29.9 % (19-41); Mean Corp Hgb Conc 33.7 g/gl (32-36); Mean Corpuscular Hgb 30.2 pg (27.0-32.0); Mean Corpuscular Volume 89.7 fL (80-94); Mean Platelet Vol. 9.8 fl (6.2-12.0); Monocyte# 0.67 X10^3/uL; Monocyte% 8.2 % (0-10); Neutrophil # 4.94 X10^3/uL (2.7-7.7); Neutrophil % 60.6 % (47-70); POSITIVE COUNT NO; POSITIVE DIFFERENTIAL NO; POSITIVE MORPHOLOGY NO; Platelet Count 254 K/mm3 (150-450); RBC Distribution Width CV 13.3 % (11.6-14.6); Red Blood Count 4.57 M/mm3 (4.6-6.2); White Blood Count 8.2 K/mm3 (4.4-11.0)
[2018-05-02 06:08] LABS: Anion Gap 9 (5-15); BUN 17 mg/dL (7-18); BUN/Creat Ratio 18.7 RATIO (10-20); Calcium,Total 8.4 mg/dL (8.5-10.1); Chloride 107 mmol/L (98-107); Creatinine, Serum 0.91 mg/dL (0.70-1.30); EST Glomerular Filtration Rate 89 mL/min (>60); Est Glom Filt Rate - Afr Amer 108 mL/min (>60); Estimated Creatinine Clearance 80.38 ml/min; Glucose 101 mg/dL (74-106); Potassium 4.4 mmol/L (3.5-5.1); Sodium Level 141 mmol/L (136-145)
--- NOTE | 2018-05-02 10:22 | PCM.DC ---
- Discharge Diagnoses Current Active Problems: Current Active and Chronic Problems (Last Reviewed 12/14/17 @ 13:35 by Kimberlyn Wilkins) Chest pain at rest (Acute) Hx of CABG (Chronic) Hx of heart artery stent (Chronic) Unstable angina (Acute) Reason(s) for Visit for Discharge Instructions: Unstable Angina You will use the following diet at home:: Cardiac Your food should be the consistency of: Regular Discharge Activity: Return to Normal Activity Call your doctor if your incision/area has: Increased Pain/ Swelling, Increased Redness Call your doctor if you observe: Shortness of breath, Dizziness, Uncontrolled pain Additional Instructions: If your chest pain persist notify your primary care doctor and restrictive preparation operator. A Stent in your heart vessel may be considered at that time. Allergies/Adverse Reactions: Allergies Tetanus Vaccines and Toxoid [Tetanus Vaccines & Toxoid] Allergy (Unknown, Verified 04/30/18 11:24) Unknown pt. was a child & does not remember prochlorperazine Adverse Reaction (Verified 04/30/18 11:24) Vomiting Medications to take at Discharge Loratadine [Claritin] 10 mg PO DAILY PRN 10/24/13 azelastine 0.15 % (205.5 mcg) nasal spray 1 spray INTRANASAL BID 12/11/17 fluticasone 50 mcg/actuation nasal spray,suspension 50 mcg INTRANASAL BID PRN 12/14/17 ipratropium bromide 0.03 % nasal spray 2 spray INTRANASAL BID-TID PRN 12/14/17 nitroglycerin 0.4 mg sublingual tablet 0.4 mg SUBLINGUAL Q5M PRN #25 tab 12/14/17 Aspirin E.C. [Ecotrin] 81 mg PO DAILY 04/30/18 Atorvastatin Calcium [Lipitor] 40 mg PO QDAY 04/30/18 Clopidogrel Bisulfate [Plavix] 75 mg PO DAILY 04/30/18 Lisinopril [Zestril] 10 mg PO DAILY 04/30/18 Metoprolol Tartrate [Lopressor (beta [place])] 25 mg PO BID 04/30/18 Isosorbide Mononitrate [Imdur] 60 mg PO DAILY #30 tab 05/02/18 Ranolazine [Ranexa] 500 mg PO BID #60 tab 05/02/18 The following prescriptions were given: Isosorbide Mononitrate [Imdur] 60 mg PO DAILY #30 tab Ranolazine [Ranexa] 500 mg PO BID #60 tab Primary Care Physician: Anna Camacho MD [Primary Care Provider] - Please follow up with your Primary Care Physician in: 3-7 days Test Results: Test results from this visit will be discussed in further detail at your follow-up appointment, if applicable. Please Follow Up With: Daniel Goodman MD When: 3-7 days
[2018-05-02] MEDS: Azelastine HCl NASAL.SRY 1 SPRAY NASAL (10:24)
[2018-05-02] MEDS: Aspirin E.C. 81 MG Tablet PO (10:25)
[2018-05-02] MEDS: Metoprolol Tartrate 25 MG Tablet PO (10:26)
[2018-05-02] MEDS: Isosorbide Mononitrate 60 MG Tablet PO (10:26)
[2018-05-02] MEDS: Lisinopril 10 MG Tablet PO (10:26)
--- NOTE | 2018-05-02 10:26 | DCINST_ITS ---
- Discharge Diagnoses Current Active Problems: Current Active and Chronic Problems (Last Reviewed 12/14/17 @ 13:35 by Kimberlyn Wilkins) Chest pain at rest (Acute) Hx of CABG (Chronic) Hx of heart artery stent (Chronic) Unstable angina (Acute) Reason(s) for Visit for Discharge Instructions: Unstable Angina You will use the following diet at home:: Cardiac Your food should be the consistency of: Regular Discharge Activity: Return to Normal Activity Call your doctor if your incision/area has: Increased Pain/ Swelling, Increased Redness Call your doctor if you observe: Shortness of breath, Dizziness, Uncontrolled pain Additional Instructions: If your chest pain persist notify your primary care doctor and space and missile operations spacelift. A Stent in your heart vessel may be considered at that time. Allergies/Adverse Reactions: Allergies Tetanus Vaccines and Toxoid [Tetanus Vaccines & Toxoid] Allergy (Unknown, Verified 04/30/18 11:24) Unknown pt. was a child & does not remember prochlorperazine Adverse Reaction (Verified 04/30/18 11:24) Vomiting Medications to take at Discharge Loratadine [Claritin] 10 mg PO DAILY PRN 10/24/13 azelastine 0.15 % (205.5 mcg) nasal spray 1 spray INTRANASAL BID 12/11/17 fluticasone 50 mcg/actuation nasal spray,suspension 50 mcg INTRANASAL BID PRN ipratropium bromide 0.03 % nasal spray 2 spray INTRANASAL BID-TID PRN 12/14/17 nitroglycerin 0.4 mg sublingual tablet 0.4 mg SUBLINGUAL Q5M PRN #25 tab Aspirin E.C. [Ecotrin] 81 mg PO DAILY 04/30/18 Atorvastatin Calcium [Lipitor] 40 mg PO QDAY 04/30/18 Clopidogrel Bisulfate [Plavix] 75 mg PO DAILY 04/30/18 Lisinopril [Zestril] 10 mg PO DAILY 04/30/18 Metoprolol Tartrate [Lopressor (beta [place])] 25 mg PO BID 04/30/18 Isosorbide Mononitrate [Imdur] 60 mg PO DAILY #30 tab 05/02/18 Ranolazine [Ranexa] 500 mg PO BID #60 tab 05/02/18 The following prescriptions were given: Isosorbide Mononitrate [Imdur] 60 mg PO DAILY #30 tab Ranolazine [Ranexa] 500 mg PO BID #60 tab Primary Care Physician: Anna Camacho MD [Primary Care Provider] - Please follow up with your Primary Care Physician in: 3-7 days Test Results: Test results from this visit will be discussed in further detail at your follow- up appointment, if applicable. Please Follow Up With: Daniel Goodman MD When: 3-7 days
[2018-05-02] MEDS: Pantoprazole Sodium 20 MG Tablet PO (10:27)
[2018-05-02] MEDS: Clopidogrel Bisulfate 75 MG Tablet PO (10:27)
[2018-05-02] MEDS: Ranolazine 500 MG Tablet PO (10:27)
--- NOTE | 2018-05-02 10:42 | DS.PCM_ITS ---
Discharge Date and Diagnosis - Problem List Patient Problems: Active and Suspected Problems (Last Reviewed 12/14/17 @ 13:35 by Kimberlyn Wilkins) Chest pain at rest (Acute) Unstable angina (Acute) Date of Admission: 04/30/18 Date of Discharge: 05/02/18 - Primary Discharge Diagnosis Active and Suspected Problems (Last Reviewed 12/14/17 @ 13:35 by Kimberlyn Wilkins) Chest pain at rest (Acute) Unstable angina (Acute) - Secondary Discharge Diagnosis Chronic Problems (Last Reviewed 12/14/17 @ 13:35 by Kimberlyn Wilkins) Hx of CABG (Chronic) Hx of heart artery stent (Chronic) Atherosclerotic heart disease of [place] coronary artery without angina pectoris (Chronic) CABG x3-MITCHELL to 1st DX, CHRISTINE from the MITCHELL to LAD, reverse SVG to the distal CX 02/15/09 Aortocoronary bypass status (Chronic ~02/15/09) CABG x3-MITCHELL to 1st DX, CHRISTINE from the MITCHELL to LAD, reverse SVG to the distal CX 02/15/09 Presence of stent in coronary artery (Chronic ~10/11/12) PTCA/DRAGAN of the OM2 and of the mid CX 10/11/12 Hypertension (Chronic) Hyperlipidemia (Chronic) Hospital Course and Treatment Operations: None Procedures: Cardiac catheterization Summary of Care Provided: Patient is a 62 year old M with a significant history of CAD status post CABG in 2008; and 2 stents in 2011 who follows outpatient with cardiology presenting with excruciating substernal chest pain the started the morning of his admission. Morphine, aspirin, GI cocktail and nitroglycerin sublingual was admitted administered without any real relief. His EKG was unremarkable. And serial troponin was negative. A CTA was unremarkable but it showed a small adrenal nodule. Ultrasound of his gallbladder was unremarkable but it showed a small cyst in his liver. Because of his increasing pain patient was diagnosed with unstable angina and was placed on heparin drip and a nitroglycerin drip. Guideline medications of statin, Plavix metoprolol were continued. Although his pain abated, patient still reported some noticeable chest pain. Patient was taken in for cardiac catheterization. Cardiac catheterization results are as follow: [place] LAD 95% supplying major septal hand outside cutter; 100% Mid LAD; [place] to LAD patent Free CHRISTINE (from [place]) to D1 patent 50% Prox LCX. Stents to Mid LCX and Prox OM2 patent 100% Prox/Mid RCA. SVG to RCA 50% eccentric lesion Recommendation from cardiology was to maximize medical treatment and in the long -term if patient was still symptomatic after multiple medical treatment PCI to mid LAD would be considered. This was appropriately discussed with patient. Patient medication regimen was escalated from Imdur 30 mg daily to 60 mg daily. And Ranexa was added to his regimen. Patient was continued on aspirin Plavix, high intensity statin and Lisinopril. Because patient reported that his medications will be delivered to him in about a week's time he was prescribed an additional 10 days of Ranexa that he agreed to picker and sorter load and unload from our outpatient pharmacy next day after discharge. Meanwhile he will double his home dose of Imdur till he receive his new prescription. On the day of discharge patient was seen and brief physical examination performed is as follows. General: NAD. HEENT: Atraumatic and normacephalic. Chest: Nontender, no abnormal breath sounds. Cardiovascular: S1-S2 present no murmur, gallop or rub. Abdomen: Nondistended, nontender bowel sounds present. Extremities: No cyanosis, no clubbing, no edema Neuro alert and oriented. The patient was instructed to follow up with his PCP for the adrenal nodule and liver cyst found on imaging. Patient was instructed to come to the emergency department if his chest pain worsens. Discharge Diet: Low fat/ Low Cholesterol, - - Low-salt diet Discharge Activity: Return to Normal Activity Call your doctor if your incision/area has: Increased Pain/ Swelling, Increased Redness, - - At the insertion site of cardiac catheter. Call your doctor if you observe: Shortness of breath, Dizziness, Uncontrolled pain Home Medications: Medications to take at Discharge Loratadine [Claritin] 10 mg PO DAILY PRN 10/24/13 azelastine 0.15 % (205.5 mcg) nasal spray 1 spray INTRANASAL BID 12/11/17 fluticasone 50 mcg/actuation nasal spray,suspension 50 mcg INTRANASAL BID PRN ipratropium bromide 0.03 % nasal spray 2 spray INTRANASAL BID-TID PRN 12/14/17 nitroglycerin 0.4 mg sublingual tablet 0.4 mg SUBLINGUAL Q5M PRN #25 tab Aspirin E.C. [Ecotrin] 81 mg PO DAILY 04/30/18 Atorvastatin Calcium [Lipitor] 40 mg PO QDAY 04/30/18 Clopidogrel Bisulfate [Plavix] 75 mg PO DAILY 04/30/18 Lisinopril [Zestril] 10 mg PO DAILY 04/30/18 Metoprolol Tartrate [Lopressor (beta [place]tonio)] 25 mg PO BID 04/30/18 Isosorbide Mononitrate [Imdur] 60 mg PO DAILY #30 tab 05/02/18 Ranolazine [Ranexa] 500 mg PO BID #20 tab 05/02/18 Ranolazine [Ranexa] 500 mg PO BID #60 tab 05/02/18 Following Prescrptions Were Given to Patient: Isosorbide Mononitrate [Imdur] 60 mg PO DAILY #30 tab Ranolazine [Ranexa] 500 mg PO BID #60 tab Ranolazine [Ranexa] 500 mg PO BID #20 tab Primary Care Physician: Anna Camacho MD [Primary Care Provider] - Please follow up with your Primary Care Physician in: 3-7 days Please Follow Up With: Daniel Goodman MD When: 3-7 days Patient Condition:: Good Medical Necessity - Tobacco Use Smoking Status: Former smoker Tobacco Use: Non-smoker Meaningful Use Info Meaningful Use Diagnoses (Choose all that apply): AMI - AMI Aspirin given w/in 24hrs of arrival?: Yes ASA at discharge?: Yes Statins at discharge?: Yes [place]/ARB at discharge?: Yes Beta Antonio at discharge?: Yes Done w/ Acute IN measure.: Yes Code Visit Inpatient E&M: 52387 Disch Hosp
== END 2018-05-02 10:25 | disposition home or self-care (01) ==
LOC: ED 12:21 → PCU 13:19
PROVIDERS: Admitting Provider Hospitalist; Emergency Provider Emergency Medicine; Family Provider Family Medicine; PCP Family Medicine; Visit Provider Hospitalist
DX: R07.89 Other chest pain (principal); I25.110 Atherosclerotic heart disease of native coronary artery with unstable angina pectoris; R00.1 Bradycardia, unspecified; E78.5 Hyperlipidemia, unspecified; I10 Essential (primary) hypertension; K21.9 Gastro-esophageal reflux disease without esophagitis; Z87.891 Personal history of nicotine dependence; Z79.899 Other long term (current) drug therapy; Z79.82 Long term (current) use of aspirin; Z79.02 Long term (current) use of antithrombotics/antiplatelets; Z95.1 Presence of aortocoronary bypass graft; K44.9 Diaphragmatic hernia without obstruction or gangrene; D35.00 Benign neoplasm of unspecified adrenal gland
CPT/HCPCS: 36415; 71045; 71275; 76705; 80048; 80061; 80076; 80307; 83036; 84484; 85025; 85027; 85610; 85730; 93005; 93455; 96365; 96366; 96368; 96375; 96376; 97802; 99152; 99153; 99218; 99285; J7030; J7040; Q9967; A4216; C1769; C1894; G0378; J2405

== ENCOUNTER → 2018-06-04 09:19 | Outpatient (CLI) | payer OTHER, SELFPAY ==
[2018-06-04 10:52] LABS: AST(SGOT) 31 U/L (15-37); Alanine Aminotransfer ALT/SGPT 43 U/L (16-61); Albumin, Serum 3.9 g/dL (3.2-5.0); Alkaline Phosphatase 73 U/L (45-117); Bilirubin, Direct 0.16 mg/dL (0.00-0.30); Cholesterol 138 mg/dL (200); Globulin 3.8 g/dL (2.2-4.2); High Density Lipoprotein 28 mg/dL; Protein, Total 7.7 g/dL (6.4-8.2); Triglycerides 193 mg/dL; Very Low Density Lipoprotein 39 mg/dL (5-40)
== END ==
PROVIDERS: Family Provider Family Medicine; PCP Family Medicine; Visit Provider Internal Medicine Cardiovascular Disease
DX: E78.5 Hyperlipidemia, unspecified (principal)
CPT/HCPCS: 36415; 80061; 80076

== ENCOUNTER 2018-12-26 13:13 | Emergency (ER) | payer OTHER, SELFPAY ==
[2018-09-22 14:29] VITALS: BMI 31.7
[2018-12-26 13:14] VITALS: BP 156/80; PULSE 61; RESP 20; TEMP 36.7; O2SAT 100; BMI 30.4
--- NOTE | 2018-12-26 13:23 | EKG12_ITS ---
Test Reason : DYSRHYTHMIA Blood Pressure : / mmHG Vent. Rate : 046 BPM Atrial Rate : 046 BPM P-R Int : 186 ms QRS Dur : 098 ms QT Int : 454 ms P-R-T Axes : 028 045 051 degrees QTc Int : 397 ms Sinus bradycardia Otherwise normal ECG Confirmed by JOY BANDA, BRENNON ([id number]), editorial writer SALEEM ZAMARRIPA ([id number]) on 12/27/2018 2:31:00 PM Referred By: EMILIA Confirmed By:BRENNON HAMILTON MD
--- NOTE | 2018-12-26 13:38 | ED.VISSUMM ---
- ER Visit Summary Date of Service: 12/26/18 Chief Complaint: [] Harsh cough productive of mucus worse today History of Present Illness: The patient is a 63 M [] he of CABG and cardiac stents cardiac condition stable he reports he has a chronic cough that was worse today where he had protracted coughing could not catch his breath he indicates is related to allergies or some other condition, he also has nonspecific GI elements for which she sees Dr. 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 Physical Examination: [] Vital signs are unremarkable pulse ox 100% he is afebrile he does have a dry harsh cough that is productive of thick mucus General, no distress resting comfortably HEENT is generally unremarkable The neck is supple no adenopathy Cardiovascular, regular rate and rhythm Lungs, clear bilateral but diminished with scattered wheezing Abdomen, soft nontender Extremities, no clubbing cyanosis or edema Neurologic, awake alert answering questions appropriately moving all 4 extremities Test Results: [] Emergency Department Course and Treatment: [] Patient's EKG labs chest x-ray are all unremarkable is resting comfortably bed he is in no distress he has not vomited while he is in the ED his cough is improved indicates that now his main issue is his chronic nausea that he has had long-standing per the family he has been seen by Dr. Alexander and recently had an EGD and other test as an outpatient that were unremarkable we discussed inpatient versus outpatient management, he is feeling better he wants to go home he will follow-up with his outpatient providers related to his cough and COPD, his GI doctors with relation to the chronic nausea and return for change in symptoms Treatment Plan: [] Disposition: [] Home stable Impression: [] Exacerbation of COPD cough improved, chronic nausea This note was generated with [employer] dictation software. It may contain incorrect words, spelling, and punctuation that were not noted in review of the chart prior to signing ED Disposition - Plan for ED Patient: Referrals: Anna Camacho MD [STAFF PHYSICIAN] -
[2018-12-26 13:44] VITALS: PULSE 56; RESP 16
--- NOTE | 2018-12-26 13:45 | RAD_ITS ---
STUDY: X-RAY CHEST REASON FOR EXAM: Male, 63 years old. Vomiting and fever. TECHNIQUE: AP upright portable view. COMPARISON: 04/30/2018. FINDINGS: Median sternotomy from prior CABG procedure. An upper sternal wire is fractured. Mild pulmonary hyperinflation with mild flattening of the hemidiaphragms. No suspicious pulmonary nodules or infiltrates. There is no demonstrated pleural abnormality. Normal size heart. Normal mediastinum and lucy. Normal visualized pulmonary arteries. Normal visualized aortic arch and descending thoracic aorta. Normal visualized thoracic spine. Normal visualized ribs, clavicles, and shoulders. There is no demonstrated abnormality of the visualized soft tissue structures of the upper abdomen. RAD/Chest 1 View (Portable) IMPRESSION: 1. No acute cardiopulmonary pathology. 2. Mild COPD. 3. No significant interval change when compared to 04/30/2018. Electronically Signed: Jim Loyd MD at 14:31 EST , Service support ,
[2018-12-26 13:57] VITALS: BP 178/94; PULSE 63; RESP 23; O2SAT 100; O2SAT 99
[2018-12-26] MEDS: Morphine 4 MG/ML Syringe IV (14:10)
[2018-12-26] MEDS: Ipratropium/Albuterol Sulfate 3 ML AMPUL.NEB INHALATION (14:10)
[2018-12-26] MEDS: Ondansetron 4 MG/2 ML Vial IV (14:11)
[2018-12-26] MEDS: 0.9% Normal Saline 1,000 ML 125 ML IV (14:11)
[2018-12-26] MEDS: Aspirin 81 MG TAB.CHEW 324 MG PO (14:20)
[2018-12-26 14:33] LABS: Absolute Lymphocyte Count 1.13 X10^3/ul (0.83-4.51); Absolute Neutrophil Count 6.6 X10^3/uL (2.0-7.7); Hematocrit 43.1 % (40-54); Hemoglobin 14.4 g/dl (13.0-16.5); Lymphocyte # 1.13 X10^3/ul (4.0); Lymphocyte % 14.4 % (19-41); Mean Corp Hgb Conc 33.4 g/gl (32-36); Mean Corpuscular Hgb 29.5 pg (27.0-32.0); Mean Corpuscular Volume 88.3 fL (80-94); Mean Platelet Vol. 9.8 fl (6.2-12.0); Monocyte# 0.12 X10^3/uL; Monocyte% 1.5 % (0-10); Neutrophil # 6.59 X10^3/uL (2.7-7.7); POSITIVE COUNT NO; POSITIVE DIFFERENTIAL NO; POSITIVE MORPHOLOGY NO; Platelet Count 223 K/mm3 (150-450); RBC Distribution Width CV 12.9 % (11.6-14.6); RBC Distribution Width SD 41.6 fl (35.1-43.9); Red Blood Count 4.88 M/mm3 (4.6-6.2); White Blood Count 7.9 K/mm3 (4.4-11.0)
[2018-12-26 14:50] LABS: AST(SGOT) 36 U/L (15-37); Alanine Aminotransfer ALT/SGPT 45 U/L (16-61); Albumin, Serum 4.4 g/dL (3.2-5.0); Alkaline Phosphatase 77 U/L (45-117); Anion Gap 8 (5-15); BUN 18 mg/dL (7-18); BUN/Creat Ratio 17.8 RATIO (10-20); Bilirubin, Direct 0.21 mg/dL (0.00-0.30); Calcium,Total 9.3 mg/dL (8.5-10.1); Chloride 108 mmol/L (98-107); Creatinine, Serum 1.01 mg/dL (0.70-1.30); EST Glomerular Filtration Rate 79 mL/min (>60); Est Glom Filt Rate - Afr Amer 96 mL/min (>60); Estimated Creatinine Clearance 71.49 ml/min; Globulin 3.9 g/dL (2.2-4.2); Glucose 160 mg/dL (74-106); Lipase 97 U/L (73-393); Protein, Total 8.3 g/dL (6.4-8.2); Sodium Level 138 mmol/L (136-145)
[2018-12-26 14:57] VITALS: BP 159/86; PULSE 54; RESP 15; O2SAT 93
[2018-12-26 14:59] LABS: Bacteria 0 SEEN /hpf (None Seen); Red Blood Cells-Urine 0 SEEN /hpf (0-5); Squamous Epithelial Cells - UA 0 SEEN /hpf (0-5)
[2018-12-26 15:09] LABS: Color, Urine Yellow (Yellow); Glucose, Dipstick Normal (Normal); Ketone-Dipstick 50 mg/dl (Negative); Leukocyte Esterase-Dipstick 25 /ul (Negative); Nitrite-Dipstick Negative (Negative); Occult Blood-Urine Negative /ul (Negative); Protein-Dipstick 30 mg/dl (Negative); Urine Bilirubin Dipstick Negative (Negative); Urine Clarity Clear (Clear); Urine Urobilinogen Normal (Normal)
--- NOTE | 2018-12-26 15:18 | ED.DEP ---
ED Disposition - Plan for ED Patient: Instructions: What Is Chronic Bronchitis?, What is COPD? Prescriptions: Albuterol Inhaler [Ventolin Hfa] 1 - 2 puff INHALATION Q4H PRN PRN #1 inhaler PRN Reason: Wheezing Referrals: Anna Camacho MD [STAFF PHYSICIAN] -
[2018-12-26 15:21] LABS: Mucous, Urine 2+ /hpf (<or=2+); White Blood Cells 0-5 SEEN /hpf (0-5)
[2018-12-26 15:27] VITALS: BP 172/76; PULSE 50; RESP 19; O2SAT 92
== END 2018-12-26 15:55 | disposition home or self-care (01) ==
LOC: ED 14:51
PROVIDERS: Emergency Provider Emergency Medicine; Family Provider Family Medicine; PCP Family Medicine
DX: J44.1 Chronic obstructive pulmonary disease with (acute) exacerbation (principal); R05 Cough; R11.0 Nausea; Z95.1 Presence of aortocoronary bypass graft; I25.10 Atherosclerotic heart disease of native coronary artery without angina pectoris; F17.200 Nicotine dependence, unspecified, uncomplicated; Z79.51 Long term (current) use of inhaled steroids; Z79.82 Long term (current) use of aspirin; Z79.899 Other long term (current) drug therapy
CPT/HCPCS: 71045; 80048; 80076; 81001; 83690; 84484; 85025; 93005; 94640; 96361; 96374; 96375; 99285; J7030; A4216; J2405

== ENCOUNTER 2020-04-09 10:21 | Observation (INO) | payer OTHER, SELFPAY ==
[2019-09-08 15:10] VITALS: BMI 31.3
[2020-04-09] VITALS (8 sets, daily range): BP systolic 124–180; BP diastolic 80–128; PULSE 44–56; RESP 11–20; TEMP 36.1–36.9; O2SAT 97–99; BMI 27.3; BMI 27.8
--- NOTE | 2020-04-09 10:30 | RAD_ITS ---
STUDY: X-RAY CHEST REASON FOR EXAM: Male, 64 years old. Chest pain. TECHNIQUE: Single AP portable view of the chest. COMPARISON: Comparison is made with prior examination dated December 26, 2018. FINDINGS: EKG electrodes are seen. The lungs are clear and expanded. There is no demonstrated pleural abnormality. Sternal cerclage wires and vascular clips are present from a prior sternotomy and coronary artery bypass graft procedure (CABG). Normal mediastinum and lucy. Normal visualized pulmonary arteries. There is atherosclerotic calcification of the aortic arch with tortuosity. There are diffuse degenerative changes of the visualized thoracic spine. Normal visualized ribs, clavicles, and shoulders. There is no demonstrated abnormality of the visualized soft tissue structures of the upper abdomen. RAD/Chest 1 View (Portable) IMPRESSION: No acute abnormality is seen. Electronically Signed: Ramy Travis, at 11:06 EDT , Service support ,
--- NOTE | 2020-04-09 10:31 | EKG12_ITS ---
Test Reason : ABD PAIN Blood Pressure : / mmHG Vent. Rate : 084 BPM Atrial Rate : 084 BPM P-R Int : 210 ms QRS Dur : 080 ms QT Int : 366 ms P-R-T Axes : 031 -47 013 degrees QTc Int : 432 ms Sinus rhythm with 1st degree A-V block Left axis deviation Anterolateral infarct , age undetermined , cannot be excluded Abnormal ECG Confirmed by YOLIS BANDA, BELEN ([id number]), magazine editor SALEEM ZAMARRIPA ([id number]) on 04/10/2020 11:16:13 AM Referred By: RELL Confirmed By:BELEN LAGOS MD
--- NOTE | 2020-04-09 10:32 | ED.DCSUM_ITS ---
History of Present Illness Chief Complaint: Shortness of Breath Informant: Patient Onset: Days Context: Gradual Onset Timing: Continuous Current Severity: Moderate Maximum Severity: Moderate Narrative: The patient is a 64-year-old male with medical history significant for coronary vascular disease status post CABG that presents to the emergency department with generalized malaise. Patient states that on , he moved 7 tons of hay. He states that he felt very weak after. He states for the past few days, he has had no energy, he is been nauseated, and occasionally will feel short of breath. He states that he will occasionally get some left-sided chest pain. He denies any fevers or chills. He states he is been trying to drink, but with his vomiting and lack of appetite, he states he has been hard to maintain his hydration. He states that he feels generally weak but denies any focal complaints. Prior similar symptoms: No Recent Illness/Hospitalization: No Past Medical History - Allergies and Home Meds Allergies/Adverse Reactions: Allergies Tetanus Vaccines and Toxoid [Tetanus Vaccines & Toxoid] Allergy (Unknown, Verified 04/09/20 10:22) Unknown pt. was a child & does not remember prochlorperazine Adverse Reaction (Verified 04/09/20 10:22) Vomiting Primary Care Physician: Arline Chapman DO [Primary Care Provider] - Prior records reviewed: Yes Past Medical History: - - Coronary vascular disease, hypertension Surgical History: noncontributory Smoking Status: Former smoker Review of Systems General: Reports: Chills, Malaise. Denies: Fever, Sweats Eyes: Denies: Visual changes - bilaterally, Diplopia ENT: Denies: Rhinorrhea, Sore throat Cardiovascular: Reports: Chest pain. Denies: Palpitations Respiratory: Reports: Cough. Denies: Dyspnea, Dyspnea on exertion Gastrointestinal: Reports: Nausea, Vomiting. Denies: Abdominal pain, Diarrhea, Melena, Hematochezia Genitourinary: Denies: Dysuria, Hematuria, Frequency Musculoskeletal: Denies: Back pain, Extremity Pain Skin: Denies: Rash, Wounds Neurological: Denies: Headache, Weakness, Numbness Physical Exam Vital Signs/Narrative: Vital Signs Temp Pulse Resp BP Pulse Ox 04/09/20 10:23 97.8 F 49 L 20 H 180/128 H 99 Inital Vital Signs reviewed: Yes General: Well nourished, Well developed, No Acute Distress Head: Normocephalic, Atraumatic Eyes: Perrl, EOMI ENT: Moist mucous membranes, No rhinorrhea Neck: Supple, Nontender Cardiovascular: Regular rate, Regular rhythm, No murmurs Respiratory: No distress, CTA bilaterally, Chest nontender Abdomen: Soft, Nontender, Nondistended, Normal bowel sounds Back: Nontender, Normal Inspection Extremities: Nontender, No edema Skin: Normal color, No rash Neurological: Alert, Oriented x3, Cranial nerves II-XII grossly intact, Normal Strength, Normal Sensation Psychological: Normal affect, Normal Mood Diagnostic/Tx/Re-eval Clinical Impression(s) from Imaging Studies Chest X-Ray 04/09/20 10:30 IMPRESSION: No acute abnormality is seen. Electronically Signed: Ramy Travis at 11:06 EDT , Service support , Gallbladder Ultrasound 04/09/20 11:07 IMPRESSION: Diffuse fatty infiltration of the liver, no discrete lesion Electronically Signed: Wyatt Larios MD at 12:22 EDT , Service support , Abnormal Lab Results 04/09/20 04/09/20 04/09/20 10:30 10:30 10:30 WBC 9.3 RBC 5.20 Hgb 14.9 Hct 45.9 MCV 88.3 MCH 28.7 MCHC 32.5 RDW Std Deviation 42.3 RDW Coeff of Nic 13.2 Plt Count 293 MPV 9.7 Immature Gran % (Auto) 0.400 Neut % (Auto) 75.3 H Lymph % (Auto) 17.8 L [place] % (Auto) 6.1 Eos % (Auto) 0.2 Baso % (Auto) 0.2 Absolute Neuts (auto) 7.0 Absolute Lymphs (auto) 1.65 Nucleated RBC % 0 Sodium 138 Potassium 3.0 L Chloride 101 Carbon Dioxide 29.0 Anion Gap 8 BUN 22 H Creatinine 1.14 Estim Creat Clear Calc 62.50 Est GFR (MDRD) Af Amer 83 Est GFR (MDRD) Non-Af 68 BUN/Creatinine Ratio 19.3 Glucose 155 H Calcium 9.7 Total Bilirubin 1.80 H AST 31 ALT 46 Alkaline Phosphatase 71 Troponin I < 0.015 B-Natriuretic Peptide 34.4 Total Protein 8.6 H Albumin 4.6 Globulin 4.0 Albumin/Globulin Ratio 1.2 - Medical Decision Making The patient presents to the emergency department with nausea, generalized weakness, and intermittent chest pain. This was after he exerted himself rather strenuously 3 days ago. EKG was obtained which was sinus rhythm without acute ischemia. The patient would have sustained bradycardia in the upper 40s or 50s. In review of prior EKG this seem to be consistent. Screening labs were obtained. His cardiac enzymes were negative. His potassium is mildly decreased and it was replaced. His bilirubin is mildly elevated so I did obtain right upper quadrant ultrasound especially given his nausea. This was negative. With the patient's intermittent chest pain and generalized malaise, along with his history of prior bypass, I do feel that he would benefit from observation for cardiac work-up. Patient is comfortable with this plan of care. Impression 1. Chest pain with history of coronary vascular disease 2. Generalized malaise 3. Nausea ED Disposition - Plan for ED Patient: Referrals: Arline Chapman DO [Primary Care Provider] -
[2020-04-09 10:41] LABS: Absolute Lymphocyte Count 1.65 X10^3/uL (0.83-4.51); Basophil# 0.02 X10^3/uL; Basophil% 0.2 % (0-1); Eosinophil# 0.02 X10^3/uL; Eosinophils% 0.2 % (0-5); Hematocrit 45.9 % (40-54); Hemoglobin 14.9 g/dL (13.0-16.5); Lymphocyte # 1.65 X10^3/ul (4.0); Lymphocyte % 17.8 % (19-41); Mean Corp Hgb Conc 32.5 g/dL (32-36); Mean Corpuscular Hgb 28.7 pg (27.0-32.0); Mean Corpuscular Volume 88.3 fL (80-94); Mean Platelet Vol. 9.7 fl (6.2-12.0); Monocyte# 0.57 X10^3/uL; Monocyte% 6.1 % (0-10); NRBC Flagged by Analyzer 0 % (0-5); Neutrophil # 6.98 X10^3/uL (2.7-7.7); Neutrophil % 75.3 % (47-70); Platelet Count 293 K/mm3 (150-450); RBC Distribution Width CV 13.2 % (11.6-14.6); RBC Distribution Width SD 42.3 fl (35.1-43.9); White Blood Count 9.3 K/mm3 (4.4-11.0)
[2020-04-09] MEDS: 0.9% Normal Saline 1,000 ML 1000 ML IV (10:44)
[2020-04-09] MEDS: Ondansetron 4 MG/2 ML Vial IV (10:45)
[2020-04-09 10:57] LABS: ALB/GLOB Ratio 1.2 RATIO (0.9-2.4); AST(SGOT) 31 U/L (15-37); Alanine Aminotransfer ALT/SGPT 46 U/L (16-61); Albumin, Serum 4.6 g/dL (3.2-5.0); Alkaline Phosphatase 71 U/L (45-117); Anion Gap 8 (5-15); BUN 22 mg/dL (7-18); BUN/Creat Ratio 19.3 RATIO (10-20); Calcium,Total 9.7 mg/dL (8.5-10.1); Chloride 101 mmol/L (98-107); Creatinine, Serum 1.14 mg/dL (0.70-1.30); EST Glomerular Filtration Rate 68 mL/min (>60); Est Glom Filt Rate - Afr Amer 83 mL/min (>60); Glucose 155 mg/dL (74-106); Protein, Total 8.6 g/dL (6.4-8.2); Sodium Level 138 mmol/L (136-145)
--- NOTE | 2020-04-09 11:07 | US_ITS ---
STUDY: ABDOMINAL ULTRASOUND - RIGHT UPPER QUADRANT REASON FOR VISIT: Male, 64 years old CHOLECYSTITIS nausea and vomiting TECHNIQUE: Ultrasound evaluation of the right upper quadrant was performed with real-time and static pichardo-scale imaging. TECHNICAL QUALITY: Limited. Examination limited due to the patient?s condition. COMPARISON: None. FINDINGS: Liver: The liver measures 16.6 cm. There is increased echogenicity consistent with fatty infiltration. The bile ducts are within normal limits. There is hepatic color flow. The direction of portal flow is hepatopetal. There is no demonstrated mass lesion. Gallbladder: Normal distended gallbladder. The gallbladder wall measures 1.3 mm. There is a negative sonographic Clemente''s sign. There is no pericholecystic fluid. There are no gallstones. Common Bile Duct (C.B.D.): The common bile duct measures 6.6 mm. Pancreas: Normal size of the head, body and tail of the pancreas. There is normal echogenicity of the pancreas. There is no demonstrated pancreatic mass or cyst. Right Kidney: Normal size of the right kidney. The right kidney measures 11.8 x 5.5 x 6.1 cm. Normal renal cortex. The right cortex measures 1.4 cm. There is no demonstrated renal mass or cyst. There is no right hydronephrosis. US/Gallbladder IMPRESSION: Diffuse fatty infiltration of the liver, no discrete lesion Electronically Signed: Wyatt Larios MD at 12:22 EDT , Service support ,
[2020-04-09 11:10] LABS: BNP,B-Type NATRIURETIC PEPTIDE 34.4 pg/mL (0-100)
--- NOTE | 2020-04-09 12:40 | NURSING ---
DR SAKSHI PUGH
--- NOTE | 2020-04-09 12:42 | NURSING ---
PCU OBS CP SAKSHI
[2020-04-09 12:48] LABS: Bacteria 0 SEEN /hpf (None Seen); White Blood Cells 0 SEEN /hpf (0-5)
[2020-04-09 12:51] LABS: Color, Urine Yellow (Yellow); Glucose, Dipstick Normal (Normal); Ketone-Dipstick 15 mg/dl (Negative); Leukocyte Esterase-Dipstick Negative /ul (Negative); Nitrite-Dipstick Negative (Negative); Occult Blood-Urine 10 /ul (Negative); Protein-Dipstick 15 mg/dl (Negative); Specific Gravity, Urine 1.015 (1.002-1.030); Urine Bilirubin Dipstick Negative (Negative); Urine Clarity Sl. Cloudy (Clear); Urine Urobilinogen Normal (Normal)
--- NOTE | 2020-04-09 12:56 | PCM.HP.STD ---
Problem List (1) History of coronary artery bypass surgery Status: Chronic Comment: CABG x3-MITCHELL to 1st DX, CHRISTINE from the MITCHELL to LAD, reverse SVG to the distal CX 02/15/09 (2) Essential hypertension Status: Chronic (3) Chest pain at rest Status: Acute (4) Unstable angina Status: Acute (5) Atherosclerotic heart disease of [place] coronary artery without angina pectoris Status: Chronic Qualifiers: [place] vs. transplanted heart: [place] heart Qualified Code(s): I25.10 - Atherosclerotic heart disease of [place] coronary artery without angina pectoris Comment: CABG x3-MITCHELL to 1st DX, CHRISTINE from the MITCHELL to LAD, reverse SVG to the distal CX 02/15/09 (6) Long-term use of high-risk medication Status: Acute (7) Presence of stent in coronary artery Status: Chronic Comment: PTCA/DRAGAN of the OM2 and of the mid CX 10/11/12 (8) Syncope and collapse Status: Acute (9) Hyperlipidemia Status: Chronic Qualifiers: Hyperlipidemia type: unspecified Qualified Code(s): E78.5 - Hyperlipidemia, unspecified History of Present Illness Date of Admission: 04/09/20 Chief Complaint: Fatigue The patient is a 64 year old M last medical history significant coronary artery disease with previous CABG and subsequent PCI with DRAGAN, hypertension dyslipidemia who presented to the emergency department with a 4-day history of fatigue. Patient symptoms started started about 4 days prior to his admission. He had lifted some heavy stuff (hay). He subsequently developed subjective fever as well as chills. Symptoms persisted for the last 4 days. On the morning of his presentation he did develop some chest pain which he described as a spots beneath his left breast. Given his previous history he presented to the emergency department from where he was subsequently admitted for further management Past Medical History Past Medical History (Chronic Problems): Chronic Problems (Last Reviewed 09/08/19 @ 15:15 by Kimberlyn Wilkins) History of coronary artery bypass surgery (Chronic ~02/15/09) CABG x3-MITCHELL to 1st DX, CHRISTINE from the MITCHELL to LAD, reverse SVG to the distal CX 02/15/09 Essential hypertension (Chronic) Atherosclerotic heart disease of [place] coronary artery without angina pectoris (Chronic) CABG x3-MITCHELL to 1st DX, CHRISTINE from the MITCHELL to LAD, reverse SVG to the distal CX 02/15/09 Presence of stent in coronary artery (Chronic ~10/11/12) PTCA/DRAGAN of the OM2 and of the mid CX 10/11/12 Hyperlipidemia (Chronic) Medical History: Medical History (Last Reviewed 04/09/20 @ 13:[address] Rohan Morgan MD) Atherosclerotic heart disease of [place] coronary artery without angina pectoris (Chronic) I25.10 CABG x3-MITCHELL to 1st DX, CHRISTINE from the MITCHELL to LAD, reverse SVG to the distal CX 02/15/09 Long-term use of high-risk medication (Acute) Z79.899 Syncope and collapse (Acute) R55 Hyperlipidemia (Chronic) E78.5 GERD (gastroesophageal reflux disease) K21.9 Hiatal hernia K44.9 History of tobacco use Z87.891 Gastroesophageal reflux disease (Inactive) K21.9 History of tobacco use (Inactive) Z87.891 Hypertension (Inactive) I10 Allergies Tetanus Vaccines and Toxoid [Tetanus Vaccines & Toxoid] Allergy (Unknown, Verified 04/09/20 10:22) Unknown pt. was a child & does not remember prochlorperazine Adverse Reaction (Verified 04/09/20 10:22) Vomiting Home Medications: Ambulatory Orders Medication Instructions Recorded Loratadine [Claritin] 10 mg PO DAILY PRN 10/24/13 azelastine 0.15 % (205.5 mcg) 1 spray INTRANASAL BID 12/11/17 nasal spray fluticasone propionate 50 50 mcg INTRANASAL BID PRN 12/14/17 mcg/actuation nasal spray,suspension ipratropium bromide 0.03 % nasal 2 spray INTRANASAL BID-TID PRN 12/14/17 spray nitroglycerin 0.4 mg sublingual 0.4 mg SUBLINGUAL Q5M PRN #25 tab 12/14/17 tablet Aspirin E.C. [Ecotrin] 81 mg PO DAILY 04/30/18 montelukast 10 mg tablet 10 mg PO QPM 06/11/18 pantoprazole 40 mg tablet,delayed 40 mg PO DAILY PRN 09/22/18 release Albuterol Inhaler [Ventolin Hfa] 1 - 2 puff INHALATION Q4H PRN PRN 12/26/18 #1 inhaler atorvastatin 40 mg tablet 40 mg PO QDAY #90 tab 01/18/19 clopidogrel 75 mg tablet 75 mg PO DAILY #90 tab 01/20/19 melatonin 5 mg capsule 5 mg PO QHS PRN cap 03/17/19 metoprolol tartrate 25 mg tablet 25 mg PO BID #180 tab 11/03/19 isosorbide mononitrate 60 mg 60 mg PO DAILY #90 tab 11/28/19 tablet,extended release 24 hr lisinopril 10 mg tablet 10 mg PO DAILY #90 tab 12/08/19 Cetirizine HCl [Zyrtec] 10 mg PO DAILY 04/09/20 Ondansetron [Zofran Odt] 4 mg PO Q8H PRN PRN 04/09/20 Surgical History: Surgical History (Last Reviewed 04/09/20 @ 13:[address] Rohan Morgan MD) History of coronary artery bypass surgery (Chronic) Onset Date: ~02/15/09 Z95.1 CABG x3-MITCHELL to 1st DX, CHRISTINE from the MITCHELL to LAD, reverse SVG to the distal CX 02/15/09 Presence of stent in coronary artery (Chronic) Onset Date: ~10/11/12 Z95.5 PTCA/DRAGAN of the OM2 and of the mid CX 10/11/12 History of hernia repair Z98.890, Z87.19 Presence of coronary angioplasty implant and graft Onset Date: ~10/11/12 Z95.5 PTCA/DRAGAN of the OM2 and of the mid CX 10/11/12 Aortocoronary bypass status (Inactive) Onset Date: ~02/15/09 Z95.1 CABG x3-MITCHELL to 1st DX, CHRISTINE from the MITCHELL to LAD, reverse SVG to the distal CX 02/15/09 Surgical History: noncontributory Smoking Status: Former smoker - *Family History Maternal Family History: Family History (Last Reviewed 04/09/20 @ 13:[address] Rohan Morgan MD) Father Hypertension Mother Hypertension Myocardial infarction Brother Hypertension Sister Hypertension Review of Systems Constitutional: Reports: Chills, Fever, Fatigue. Denies: Anorexia, Night Sweats, Weight Change HEENT: Denies: Head Aches, Sinus Congestion, Sinus Drainage Cardiovascular: Reports: Chest Pain. Denies: Orthopnea, Palpitations, Paroxysmal Noc. Dyspnea Respiratory: Denies: Cough, Shortness of breath at rest, Shortness of breath upon exertion, Sputum production Gastrointestinal: Denies: Abdominal Pain, Hematemesis, Hematochezia, Nausea, Melena, Vomiting Genitourinary: Denies: Dysuria, Frequency, Hematuria, Urgency Musculoskeletal: Denies: Joint Pain, Joint Tenderness Skin: Denies: Rash Neurological: Denies: Focal weakness, Numbness, Tingling Psychiatric: Denies: Homicidal Ideations, Suicidal Ideations Hematologic/ Lymphatic: Denies: Easy Bruising, Easy Bleeding VTE Information - Inpt Only VTE Present on Admission: No VTE Mechan Device Prophylaxis: None VTE Pharm Prophylaxis ordered?: Yes Objective: GENERAL: cooperative HEENT: Atraumatic; EYES; Anicteric, Normal Conjunctiva NECK; supple, normal thyroid, RESPIRATORY: Diminished to auscultation CARDIOVASCULAR: Regular S1 S2, GI: soft, normoactive bowel sounds, : No Renal angle tenderness; EXTREMITIES: No edema, no clubbing, MUSCULOSKELETAL: no muscle waisting NEURO: Awake; no lateralizing signs. SKIN: No Rash PSYCH; Flat affect - Physical Exam Vitals/I&O's: Vital Signs Temp Pulse Resp BP Pulse Ox 97.0 F L 44 L 11 L 172/89 H 99 04/09/20 12:44 04/09/20 12:45 04/09/20 12:45 04/09/20 12:45 04/09/20 12:45 Oxygen Delivery Method Room Air Weight: 81.5 kg Body Mass Index (BMI) 27.3 Intake and Output for Last 24 Hours 04/07/20 04/08/20 04/09/20 23:59 23:59 23:59 Intake Total 1000 / 1000 Balance 1000 / 1000 Laboratory Results 04/09/20 10:30: WBC 9.3, RBC 5.20, Hgb 14.9, Hct 45.9, MCV 88.3, MCH 28.7, MCHC 32.5, RDW Std Deviation 42.3, RDW Coeff of Nic 13.2, Plt Count 293, MPV 9.7, Immature Gran % (Auto) 0.400, Neut % (Auto) 75.3 H, Lymph % (Auto) 17.8 L, [place] % (Auto) 6.1, Eos % (Auto) 0.2, Baso % (Auto) 0.2, Absolute Neuts (auto) 7.0, Absolute Lymphs (auto) 1.65, Nucleated RBC % 0 04/09/20 10:30: Sodium 138, Potassium 3.0 L, Chloride 101, Carbon Dioxide 29.0, Anion Gap 8, BUN 22 H, Creatinine 1.14, Estim Creat Clear Calc 62.50, Est GFR (MDRD) Af Amer 83, Est GFR (MDRD) Non-Af 68, BUN/Creatinine Ratio 19.3, Glucose 155 H, Calcium 9.7, Total Bilirubin 1.80 H, AST 31, ALT 46, Alkaline Phosphatase 71, Troponin I < 0.015, Total Protein 8.6 H, Albumin 4.6, Globulin 4.0, Albumin/Globulin Ratio 1.2 04/09/20 10:30: B-Natriuretic Peptide 34.4 04/09/20 12:44: Urine Color Pending, Urine Clarity Pending, Urine pH Pending, Ur Specific [place] Pending, Urine Protein Pending, Urine Glucose (UA) Pending, Urine Ketones Pending, Urine Occult Blood Pending, Urine Nitrite Pending, Urine Bilirubin Pending, Urine Urobilinogen Pending, Ur Leukocyte Esterase Pending, Urine RBC Pending, Urine WBC Pending, Ur Squamous Epith Cells Pending, Urine Bacteria Pending, Urine Mucus Pending Assessment/Plan All Active Problems (Last Reviewed 09/08/19 @ 15:15 by Kimberlyn Wilkins) Chest pain at rest (Acute) Unstable angina (Acute) Long-term use of high-risk medication (Acute) Syncope and collapse (Acute) Patient is a 64-year-old gentleman presenting with fatigue subjective fever and chills as well as chest pain 1. Acute viral syndrome ?Suspected COVID 19 infection, patient has been placed under contact and droplet precautions whilst waiting for the results of the assay 2. Pain ?Patient admitted to monitored bed did order serial cardiac enzymes EKG to rule out VT. Patient to undergo a nuclear stress test if VT is ruled out 4. Coronary artery disease with previous CABG and PCI with DRAGAN ?Patient on recommended medications 5. Dyslipidemia -Patient is on statin therapy, continued at home dose 6. Hypertension - Blood pressure controlled, home medications continued with dose adjustment as needed 7. Hyperglycemia Patient also known diabetic ordered hemoglobin A1c 8. DVT prophylaxis - On enoxaparin OBSV E&M: [id number] Initial observation care L3
[2020-04-09 12:57] LABS: Mucous, Urine 1+ /hpf (<or=2+); Red Blood Cells-Urine 0-5 SEEN /hpf (0-5); Squamous Epithelial Cells - UA 0-5 SEEN /hpf (0-5)
--- NOTE | 2020-04-09 14:01 | ECHOD_ITS ---
Reason For Study: CP Procedure This was a 2D Doppler, Color Flow transthoracic echocardiogram. The study was technically difficult. Contrast injection was performed. Exam performed portable in ICU/CCU. Left Ventricle Normal LV size. The estimated ejection fraction is 60 %. Stage 1 diastolic dysfunction. No regional wall motion abnormalities noted. Right Ventricle Normal RV size. Normal systolic function. Atria Normal left atrium. Normal right atrium. Mitral Valve Normal mitral valve. Tricuspid Valve Normal tricuspid valve. Mild (1+) tricuspid valve insufficiency. Pulmonary artery systolic pressure is 28 mmHg. Aortic Valve Trisinus/trileaflet aortic valve. Mild focal aortic valve calcification. Pulmonic Valve The pulmonic valve is not well visualized. Great Vessels Normal aortic root. The pulmonary artery is normal size. Normal inferior vena cava. Pericardium/Pleural No pericardial effusion. Medication Diluted definity 2ml given slow IV push to enhance endocardial definition. MMode/2D Measurements & Calculations LVIDd: 4.8 cm IVSd: 1.4 cm LA dimension: 3.8 cm LVIDs: 3.2 cm LVPWd: 1.0 cm FS: 33.7 % LAV(MOD-bp): 54.7 ml LA A4 area: 19.3 cm2 LAV(MOD-bp) Indexed: 28.1 ml/m2 LAV(MOD-sp2): 53.3 ml LAV(MOD-sp4): 57.3 ml Time Measurements MV dec time: 0.24 sec Doppler Measurements & Calculations MV E max juan luis: 93.2 cm/sec Lat Peak E' Juan Luis: 13.8 cm/sec Med Peak E' Juan Luis: 8.4 cm/sec MV A max juan luis: 95.1 cm/sec E/E' lat: 6.8 E/E' med: 11.1 MV E/A: 0.98 MV V2 max: 108.8 cm/sec MV P1/2t max juan luis: 109.8 cm/sec Ao V2 max: 171.4 cm/sec MV max P.7 mmHg MV P1/2t: 111.8 msec Ao max P.8 mmHg MV V2 mean: 50.6 cm/sec MV dec slope: 287.5 cm/sec2 MV mean P.3 mmHg MV V2 VTI: 44.3 cm MVA(P1/2t): 2.0 cm2 LV V1 max: 152.9 cm/sec PA V2 max: 117.5 cm/sec TR max juan luis: 248.5 cm/sec LV V1 max P.4 mmHg TR max P.7 mmHg Interpretation Summary Normal LV size. The estimated ejection fraction is 60 %. Stage 1 diastolic dysfunction. Mild focal aortic valve calcification. Contrast injection was performed. Ordering Physician: Rohan Morgan Performed By: Deonte Duran RCS
[2020-04-09 16:22] LABS: Probe Check PASS; Specimen Processing Control PASS
[2020-04-09] MEDS: Montelukast 10 MG Tablet PO (21:21)
[2020-04-09] MEDS: Atorvastatin Calcium 40 MG Tablet PO (21:21)
[2020-04-09] MEDS: MELATONIN 10 MG TABLET PO (22:48)
[2020-04-09] MEDS: Ipratropium Bromide 0.06% NASAL SPRAY 2 SPRAY NASAL (23:14)
[2020-04-09] MEDS: Azelastine HCl NASAL.SRY 1 SPRAY NASAL (23:15)
[2020-04-09] MEDS: Fluticasone 0.05% 1 SPRAY NASAL.SRY NASAL (23:15)
[2020-04-10 00:10] VITALS: BP 117/72; PULSE 78; RESP 16; TEMP 36.7; O2SAT 98
[2020-04-10 02:59] VITALS: PULSE 52
[2020-04-10 05:35] LABS: Hematocrit 41.9 % (40-54); Hemoglobin 13.8 g/dL (13.0-16.5); Mean Corp Hgb Conc 32.9 g/dL (32-36); Mean Corpuscular Hgb 29.3 pg (27.0-32.0); Mean Platelet Vol. 9.5 fl (6.2-12.0); Platelet Count 219 K/mm3 (150-450); RBC Distribution Width SD 42.3 fl (35.1-43.9); Red Blood Count 4.71 M/mm3 (4.6-6.2); White Blood Count 9.1 K/mm3 (4.4-11.0)
[2020-04-10 05:51] LABS: ALB/GLOB Ratio 1.1 RATIO (0.9-2.4); AST(SGOT) 24 U/L (15-37); Alanine Aminotransfer ALT/SGPT 40 U/L (16-61); Albumin, Serum 3.8 g/dL (3.2-5.0); Alkaline Phosphatase 61 U/L (45-117); Anion Gap 6 (5-15); BUN 17 mg/dL (7-18); BUN/Creat Ratio 19.1 RATIO (10-20); Calcium,Total 8.8 mg/dL (8.5-10.1); Chloride 105 mmol/L (98-107); Cholesterol 133 mg/dL (200); Creatinine, Serum 0.89 mg/dL (0.70-1.30); EST Glomerular Filtration Rate 91 mL/min (>60); Est Glom Filt Rate - Afr Amer 110 mL/min (>60); Estimated Creatinine Clearance 80.06 ml/min; Globulin 3.4 g/dL (2.2-4.2); Glucose 92 mg/dL (74-106); High Density Lipoprotein 29 mg/dL; Potassium 3.4 mmol/L (3.5-5.1); Protein, Total 7.2 g/dL (6.4-8.2); Sodium Level 139 mmol/L (136-145); Triglycerides 151 mg/dL; Very Low Density Lipoprotein 30 mg/dL (5-40)
--- NOTE | 2020-04-10 05:55 | EKG12_ITS ---
Test Reason : AM EKG Blood Pressure : / mmHG Vent. Rate : 047 BPM Atrial Rate : 047 BPM P-R Int : 168 ms QRS Dur : 104 ms QT Int : 452 ms P-R-T Axes : 034 028 039 degrees QTc Int : 400 ms Sinus bradycardia Otherwise normal ECG Confirmed by YOLIS BANDA, BELEN ([id number]), editor trade journal BENITA ROBLES ([id number]) on 04/11/2020 1:11:47 PM Referred By: DR CANTOR Confirmed By:BELEN LAGOS MD
[2020-04-10 06:10] VITALS: BP 133/80; PULSE 50; RESP 16; TEMP 36.8; O2SAT 96
[2020-04-10] MEDS: Lisinopril 10 MG Tablet PO (06:25)
[2020-04-10] MEDS: Clopidogrel Bisulfate 75 MG Tablet PO (06:25)
[2020-04-10] MEDS: Aspirin E.C. 81 MG Tablet PO (06:25)
[2020-04-10] MEDS: 0.9% Saline Lock 10 ML Syringe IV (06:29)
[2020-04-10 07:00] VITALS: PULSE 49
[2020-04-10 09:34] LABS: Magnesium 2.1 mg/dL (1.6-2.6)
[2020-04-10 11:00] VITALS: BP 116/77; PULSE 62; RESP 18; TEMP 37; O2SAT 96
[2020-04-10 11:03] VITALS: PULSE 62
[2020-04-10] MEDS: Isosorbide Mononitrate 60 MG Tablet PO (11:03)
[2020-04-10] MEDS: Metoprolol Tartrate 25 MG Tablet PO (11:03)
[2020-04-10] MEDS: Ipratropium Bromide 0.06% NASAL SPRAY 2 SPRAY NASAL (11:04)
[2020-04-10] MEDS: Fluticasone 0.05% 1 SPRAY NASAL.SRY NASAL (11:04)
[2020-04-10] MEDS: Azelastine HCl NASAL.SRY 1 SPRAY NASAL (11:04)
--- NOTE | 2020-04-10 12:31 | STRESSREP_ITS ---
Stress Test Report Date: 04-10-2020 Procedure: Exercise tolerance test/imaging study Indications: Chest pain; CAD; PCI; CABG Consent: Per the patient Procedure: The patient exercised on a Alexandr protocol for 11 minutes completing Stage III and 1 minute of Stage IV achieving a peak heart rate of 139 bpm (89 % predicted maximal heart rate) with a peak blood pressure 184/72 mmHg and a peak MET capacity of 13 METs. The baseline ECG demonstrated sinus bradycardia. The peak exercise ECG demonstrated somatic/motion artifact with no obvious ECG changes. There was a rare PVC during exercise. The functional capacity was considered good. There was no complaint of chest discomfort during exercise or recovery. The examination was discontinued secondary to dyspnea and knee discomfort. Impression: 1. Technically adequate (percent predicted maximal heart rate greater than 85%) exercise tolerance test 2. Peak exercise ECG with somatic/motion artifact with no obvious ECG changes 3. There was a rare PVC during exercise 4. Nuclear images pending Myocardial perfusion imaging study: Technique: The patient was injected with 12.0 mCi of technetium 99m Cardiolite and subsequently rest SPECT Cardiolite nuclear imaging was obtained in the horizontal long, vertical long, and short axis views. The patient exercised on a Alexandr protocol for 11 minutes completing Stage III and 1 minute of Stage IV achieving a peak heart rate of 139 bpm (89 % predicted maximal heart rate) with a peak blood pressure 184/72 mmHg and a peak MET capacity of 13 METs. The patient was injected with 36.0 mCi of technetium 99m Cardiolite and subsequently stress SPECT Cardiolite nuclear imaging was obtained in the horizontal long, vertical long, and short axis views. A gated Cardiolite study at peak stress was obtained. Interpretation: Rest and stress SPECT Cardiolite nuclear imaging status post realignment, normalization, and attenuation correction, demonstrates the appearance of relative uniform tracer uptake and myocardial perfusion appearing within normal limits. There is end systolic thickening and brightening. The gated Cardiolite study demonstrates myocardial thickening and inward wall motion. The reported LVEF is 72 %. Impression: 1. Rest and stress SPECT Cardiolite nuclear imaging demonstrate relative uniform tracer uptake and myocardial perfusion appearing within normal limits. 2. The gated Cardiolite study reports an LVEF of 72 %. This note was generated with [employer] software. It may contain incorrect words, spelling, and punctuation that were not noted in checking the note before signing.
--- NOTE | 2020-04-10 12:50 | DCINST_ITS ---
You will use the following diet at home:: Cardiac Your food should be the consistency of: Regular Your liquids should be the consistency of: Regular/Thin Discharge Activity: Return to Normal Activity Allergies/Adverse Reactions: Allergies Tetanus Vaccines and Toxoid [Tetanus Vaccines & Toxoid] Allergy (Unknown, Verified 04/09/20 10:22) Unknown pt. was a child & does not remember prochlorperazine Adverse Reaction (Verified 04/09/20 10:22) Vomiting Medications to take at Discharge Loratadine [Claritin] 10 mg PO DAILY PRN 10/24/13 azelastine 0.15 % (205.5 mcg) nasal spray 1 spray INTRANASAL BID 12/11/17 fluticasone propionate 50 mcg/actuation nasal spray,suspension 50 mcg INTRANASAL BID PRN 12/14/17 ipratropium bromide 0.03 % nasal spray 2 spray INTRANASAL BID-TID PRN 12/14/17 nitroglycerin 0.4 mg sublingual tablet 0.4 mg SUBLINGUAL Q5M PRN #25 tab 12/14/17 Aspirin E.C. [Ecotrin] 81 mg PO DAILY 04/30/18 montelukast 10 mg tablet 10 mg PO QPM 06/11/18 pantoprazole 40 mg tablet,delayed release 40 mg PO DAILY PRN 09/22/18 clopidogrel 75 mg tablet 75 mg PO DAILY #90 tab 01/20/19 metoprolol tartrate 25 mg tablet 25 mg PO BID #180 tab 11/03/19 isosorbide mononitrate 60 mg tablet,extended release 24 hr 60 mg PO DAILY #90 tab 11/28/19 lisinopril 10 mg tablet 10 mg PO DAILY #90 tab 12/08/19 Atorvastatin Calcium [Lipitor] 40 mg PO QHS 04/09/20 Cetirizine HCl [Zyrtec] 10 mg PO DAILY 04/09/20 Melatonin 10 mg PO QHS 04/09/20 Ondansetron [Zofran Odt] 4 mg PO Q8H PRN PRN 04/09/20 Acetaminophen [Tylenol Tablet] 650 mg PO Q6H PRN PRN tab 04/10/20 Primary Care Physician: Arline Chapman DO [Primary Care Provider] - Please follow up with your Primary Care Physician in: 1-2 weeks Test Results: Test results from this visit will be discussed in further detail at your follow- up appointment, if applicable. Please Follow Up With: Daniel Goodman MD When: as directed Proposed Discharge Date: 04/10/20
--- NOTE | 2020-04-10 12:54 | DS.PCM_ITS ---
<Giuliano Gross - Last Filed: 04/10/20 12:54> Discharge Date and Diagnosis Date of Admission: 04/09/20 Date of Discharge: 04/10/20 - Primary Discharge Diagnosis Acute Problems: Generalized fatigue 2/2 dehydration mildly elevated BUN and T bili likely due to dehydration Hypokalemia Hx CAD prior CABG, stent - Secondary Discharge Diagnosis Chronic Problems: Chronic Problems (Last Reviewed 04/09/20 @ 13:[address] Rohan Morgan MD) History of coronary artery bypass surgery (Chronic ~02/15/09) CABG x3-MITCHELL to 1st DX, CHRISTINE from the MITCHELL to LAD, reverse SVG to the distal CX 02/15/09 Essential hypertension (Chronic) Atherosclerotic heart disease of [place] coronary artery without angina pectoris (Chronic) CABG x3-MITCHELL to 1st DX, CHRISTINE from the MITCHELL to LAD, reverse SVG to the distal CX 02/15/09 Presence of stent in coronary artery (Chronic ~10/11/12) PTCA/DRAGAN of the OM2 and of the mid CX 10/11/12 Hyperlipidemia (Chronic) Hospital Course and Treatment Imaging Results: 04/10/20 05:55 Nuclear Stress Test - Treadmil [NM] AM (NON MEDS) Impression: 1. Rest and stress SPECT Cardiolite nuclear imaging demonstrate relative uniform tracer uptake and myocardial perfusion appearing within normal limits. 2. The gated Cardiolite study reports an LVEF of 72 %. RAD/Chest 1 View (Portable) IMPRESSION: No acute abnormality is seen. US/Gallbladder IMPRESSION: Diffuse fatty infiltration of the liver, no discrete lesion Interpretation Summary Normal LV size. The estimated ejection fraction is 60 %. Stage 1 diastolic dysfunction. Mild focal aortic valve calcification. Contrast injection was performed. Operations: None Procedures: 2-D Echocardiogram, Stress test Summary of Care Provided: Hospital Course: The patient is a 64 year old M with pmhx as above notably significant CAD with prior CABG and stents who presented to the ER with c/o fatigue for 3 days. The patient had been working outside and became fatigued. He felt that he may be dehydrated and rested for several days with no improvement so he came to the ER concerned that his underlying heart problems may be contributing. In the ER he had mildly elevataed BUN and T bili, low potassium. He was given IV fluids. UA was neg, trop was neg, no fever, covid test neg. Trop was negative, BNP negative, EKG negative, CXR negative, GB ultrasound negative. He was admitted for cardiac workup. No events on tele. Trop neg x 3. Stress test and 2d echo were unremarkable. He felt significantly improved the following day. He had mild oscar overnight but with his normal metoprolol dose his rate was stable in the 60s. He was discharged home in stable condition. He will need to follow up with his PCP in 1-2 weeks and his resolution manager as directed. This patient was seen by Giuliano Gross PA-C under the supervision of Dr. Morgan[] - Physical Exam Vitals/I&O's: Vital Signs Temp Pulse Resp BP Pulse Ox 98.6 F 62 18 116/77 96 04/10/20 11:00 04/10/20 11:03 04/10/20 11:00 04/10/20 11:00 04/10/20 11:00 Oxygen Delivery Method Room Air Weight: 181 lb 7.047 oz Body Mass Index (BMI) 27.8 Intake and Output for Last 24 Hours 04/08/20 04/09/20 04/10/20 23:59 23:59 23:59 Intake Total 1120 / 1120 360 / 360 Balance 1120 / 1120 360 / 360 Laboratory Results 04/09/20 12:44: Urine Color Yellow, Urine Clarity Sl. Cloudy, Urine pH 8.0, Ur Specific [place] 1.015, Urine Protein 15 H, Urine Glucose (UA) Normal, Urine Ketones 15 H, Urine Occult Blood 10 H, Urine Nitrite Negative, Urine Bilirubin Negative, Urine Urobilinogen Normal, Ur Leukocyte Esterase Negative, Urine RBC 0-5 SEEN, Urine WBC 0 SEEN, Ur Squamous Epith Cells 0-5 SEEN, Urine Bacteria 0 SEEN, Urine Mucus 1+ 04/09/20 14:25: COVID-19 (SCOTT) Negative 04/09/20 16:55: Troponin I < 0.015 04/09/20 20:05: Troponin I < 0.015 04/10/20 05:25: WBC 9.1, RBC 4.71, Hgb 13.8, Hct 41.9, MCV 89.0, MCH 29.3, MCHC 32.9, RDW Std Deviation 42.3, RDW Coeff of Nic 13.0, Plt Count 219, MPV 9.5 04/10/20 05:25: Sodium 139, Potassium 3.4 L, Chloride 105, Carbon Dioxide 28.0, Anion Gap 6, BUN 17, Creatinine 0.89, Estim Creat Clear Calc 80.06, Est GFR (MDRD) Af Amer 110, Est GFR (MDRD) Non-Af 91, BUN/Creatinine Ratio 19.1, Glucose 92, Calcium 8.8, Total Bilirubin 1.70 H, AST 24, ALT 40, Alkaline Phosphatase 61, Total Protein 7.2, Albumin 3.8, Globulin 3.4, Albumin/Globulin Ratio 1.1, Triglycerides 151, Cholesterol 133, LDL Cholesterol 74, VLDL Cholesterol 30, HDL Cholesterol 29 L 04/10/20 05:25: Magnesium 2.1 Current Medications Acetaminophen (Tylenol) 650 mg PO Q6H PRN PRN PRN Reason: Pain Score 1-10/Temp > 100.7 F Al Hydroxide/Mg Hydroxide (Mylanta Ii) 30 ml PO Q6H PRN PRN PRN Reason: Gastric Burning Albuterol Sulfate (Ventolin Aerosols) 2.5 mg INHALATION Q2H PRN PRN PRN Reason: SOB/Wheezing Aspirin (Ecotrin) 81 mg PO DAILY [facility] Last Admin: 04/10/20 06:25 Dose: 81 mg Documented by: Atorvastatin Calcium (Lipitor) 40 mg PO QHS [facility] Last Admin: 04/09/20 21:21 Dose: 40 mg Documented by: Azelastine HCl (Astelin) 1 spray NASAL BID PRN PRN PRN Reason: Rhinitis Last Admin: 04/10/20 11:04 Dose: 1 spray Documented by: Clopidogrel Bisulfate (Plavix) 75 mg PO DAILY [facility] Last Admin: 04/10/20 06:25 Dose: 75 mg Documented by: Enoxaparin Sodium (Lovenox) 40 mg SC DAILY [facility] Fluticasone Propionate (Flonase Nasal [place]) 1 spray NASAL BID PRN PRN PRN Reason: ALLERGIES Last Admin: 04/10/20 11:04 Dose: 1 spray Documented by: Guaifenesin (Robitussin) 20 ml PO Q4H PRN PRN PRN Reason: COUGH Ipratropium [place] (Atrovent Nasal [place] (G)) 2 spray NASAL TID PRN PRN PRN Reason: RHINITIS Last Admin: 04/10/20 11:04 Dose: 2 spray Documented by: Isosorbide Mononitrate (Imdur) 60 mg PO DAILY [facility] Last Admin: 04/10/20 11:03 Dose: 60 mg Documented by: Lisinopril (Zestril) 10 mg PO DAILY [facility] Last Admin: 04/10/20 06:25 Dose: 10 mg Documented by: Loratadine (Claritin) 10 mg PO DAILY PRN PRN PRN Reason: ALLERGIES Magnesium Hydroxide (Milk Of Magnesia) 30 ml PO DAILY PRN PRN PRN Reason: Constipation Melatonin (Melatonin) 10 mg PO QHS PRN PRN Reason: SLEEP Last Admin: 04/09/20 22:48 Dose: 10 mg Documented by: Metoprolol Tartrate (Lopressor (Beta Antonio)) 25 mg PO BID [facility] Last Admin: 04/10/20 11:03 Dose: 25 mg Documented by: Montelukast Sodium (Singulair) 10 mg PO QPM [facility] Last Admin: 04/09/20 21:21 Dose: 10 mg Documented by: Morphine Sulfate () 4 mg IV Q3H PRN PRN PRN Reason: Pain Score 6-10/10 Nitroglycerin (Nitrostat) 0.4 mg SUBLINGUAL Q5M PRN PRN Reason: Chest pain Ondansetron HCl (Zofran Odt) 4 mg PO Q8H PRN PRN PRN Reason: NAUSEA Ondansetron HCl (Zofran) 4 mg IV Q8H PRN PRN PRN Reason: NAUSEA/VOMITING Oxycodone HCl (Oxyir) 5 mg PO Q4H PRN PRN PRN Reason: Pain Score 4-5/10 Pantoprazole Sodium (Protonix) 40 mg PO DAILY PRN PRN PRN Reason: Indigestion [facility] Sodium Chlor[facility] () 10 - 40 ml IV UD PRN PRN Reason: SALINE FLUSH Last Admin: 04/10/20 06:29 Dose: 10 ml Documented by: Discharge Activity: Return to Normal Activity Home Medications: Medications to take at Discharge Loratadine [Claritin] 10 mg PO DAILY PRN 10/24/13 azelastine 0.15 % (205.5 mcg) nasal spray 1 spray INTRANASAL BID 12/11/17 fluticasone propionate 50 mcg/actuation nasal spray,suspension 50 mcg INTRANASAL BID PRN 12/14/17 ipratropium bromide 0.03 % nasal spray 2 spray INTRANASAL BID-TID PRN 12/14/17 nitroglycerin 0.4 mg sublingual tablet 0.4 mg SUBLINGUAL Q5M PRN #25 tab 12/14/17 Aspirin E.C. [Ecotrin] 81 mg PO DAILY 04/30/18 montelukast 10 mg tablet 10 mg PO QPM 06/11/18 pantoprazole 40 mg tablet,delayed release 40 mg PO DAILY PRN 09/22/18 clopidogrel 75 mg tablet 75 mg PO DAILY #90 tab 01/20/19 metoprolol tartrate 25 mg tablet 25 mg PO BID #180 tab 11/03/19 isosorbide mononitrate 60 mg tablet,extended release 24 hr 60 mg PO DAILY #90 tab 11/28/19 lisinopril 10 mg tablet 10 mg PO DAILY #90 tab 12/08/19 Atorvastatin Calcium [Lipitor] 40 mg PO QHS 04/09/20 Cetirizine HCl [Zyrtec] 10 mg PO DAILY 04/09/20 Melatonin 10 mg PO QHS 04/09/20 Ondansetron [Zofran Odt] 4 mg PO Q8H PRN PRN 04/09/20 Acetaminophen [Tylenol Tablet] 650 mg PO Q6H PRN PRN tab 04/10/20 Primary Care Physician: Arline Chapman DO [Primary Care Provider] - Please follow up with your Primary Care Physician in: 1-2 weeks Please Follow Up With: Daniel Goodman MD When: as directed Medical Necessity - Tobacco Use Smoking Status: Former smoker Meaningful Use Info Meaningful Use Diagnoses (Choose all that apply): None applicable <Rohan Morgan - Last Filed: 04/10/20 13:23> Discharge Date and Diagnosis - Secondary Discharge Diagnosis Chronic Problems: Chronic Problems (Last Reviewed 04/09/20 @ 13:[address] Rohan Morgan MD) History of coronary artery bypass surgery (Chronic ~02/15/09) CABG x3-MITCHELL to 1st DX, CHRISTINE from the MITCHELL to LAD, reverse SVG to the distal CX 02/15/09 Essential hypertension (Chronic) Atherosclerotic heart disease of [place] coronary artery without angina pectoris (Chronic) CABG x3-MITCHELL to 1st DX, CHRISTINE from the MITCHELL to LAD, reverse SVG to the distal CX 02/15/09 Presence of stent in coronary artery (Chronic ~10/11/12) PTCA/DRAGAN of the OM2 and of the mid CX 10/11/12 Hyperlipidemia (Chronic) Hospital Course and Treatment Imaging Results: 04/10/20 05:55 Nuclear Stress Test - Treadmil [NM] AM (NON MEDS) Summary of Care Provided: This patient was seen in conjunction with Giuliano Gross PA-C . I have independently interviewed and examined the patient and reviewed pertinent historical, laboratory, and other data. Please refer to Giuliano Gross PA-C note for details of this patient's presentation, findings, and recommendations. I have reviewed Giuliano Gross PA-C note and concur with documented findings. In brief, patient 64-year-old gentleman admitted with chest pain admitted to monitored bed where patient underwent further evaluation Hospital course: As documented above - Physical Exam Vitals/I&O's: Vital Signs Temp Pulse Resp BP Pulse Ox 98.6 F 62 18 116/77 96 04/10/20 11:00 04/10/20 11:03 04/10/20 11:00 04/10/20 11:00 04/10/20 11:00 Oxygen Delivery Method Room Air Weight: 82.3 kg Body Mass Index (BMI) 27.8 Intake and Output for Last 24 Hours 04/08/20 04/09/20 04/10/20 23:59 23:59 23:59 Intake Total 1120 / 1120 360 / 360 Balance 1120 / 1120 360 / 360 Laboratory Results 04/09/20 14:25: COVID-19 ([facility]) Negative 04/09/20 16:55: Troponin I < 0.015 04/09/20 20:05: Troponin I < 0.015 04/10/20 05:25: WBC 9.1, RBC 4.71, Hgb 13.8, Hct 41.9, MCV 89.0, MCH 29.3, MCHC 32.9, RDW Std Deviation 42.3, RDW Coeff of Nic 13.0, Plt Count 219, MPV 9.5 04/10/20 05:25: Sodium 139, Potassium 3.4 L, Chloride 105, Carbon Dioxide 28.0, Anion Gap 6, BUN 17, Creatinine 0.89, Estim Creat Clear Calc 80.06, Est GFR (MDRD) Af Amer 110, Est GFR (MDRD) Non-Af 91, BUN/Creatinine Ratio 19.1, Glucose 92, Calcium 8.8, Total Bilirubin 1.70 H, AST 24, ALT 40, Alkaline Phosphatase 61, Total Protein 7.2, Albumin 3.8, Globulin 3.4, Albumin/Globulin Ratio 1.1, Triglycerides 151, Cholesterol 133, LDL Cholesterol 74, VLDL Cholesterol 30, HDL Cholesterol 29 L 04/10/20 05:25: Magnesium 2.1 Current Medications Acetaminophen (Tylenol) 650 mg PO Q6H PRN PRN PRN Reason: Pain Score 1-10/Temp > 100.7 F Al Hydroxide/Mg Hydroxide (Mylanta Ii) 30 ml PO Q6H PRN PRN PRN Reason: Gastric Burning Albuterol Sulfate (Ventolin Aerosols) 2.5 mg INHALATION Q2H PRN PRN PRN Reason: SOB/Wheezing Aspirin (Ecotrin) 81 mg PO DAILY [facility] Last Admin: 04/10/20 06:25 Dose: 81 mg Documented by: Atorvastatin Calcium (Lipitor) 40 mg PO QHS [facility] Last Admin: 04/09/20 21:21 Dose: 40 mg Documented by: Azelastine HCl (Astelin) 1 spray NASAL BID PRN PRN PRN Reason: Rhinitis Last Admin: 04/10/20 11:04 Dose: 1 spray Documented by: Clopidogrel Bisulfate (Plavix) 75 mg PO DAILY [facility] Last Admin: 04/10/20 06:25 Dose: 75 mg Documented by: Enoxaparin Sodium (Lovenox) 40 mg SC DAILY [facility] Fluticasone Propionate (Flonase Nasal [place]) 1 spray NASAL BID PRN PRN PRN Reason: ALLERGIES Last Admin: 04/10/20 11:04 Dose: 1 spray Documented by: Guaifenesin (Robitussin) 20 ml PO Q4H PRN PRN PRN Reason: COUGH Ipratropium [place] (Atrovent Nasal [place] (G)) 2 spray NASAL TID PRN PRN PRN Reason: RHINITIS Last Admin: 04/10/20 11:04 Dose: 2 spray Documented by: Isosorbide Mononitrate (Imdur) 60 mg PO DAILY [facility] Last Admin: 04/10/20 11:03 Dose: 60 mg Documented by: Lisinopril (Zestril) 10 mg PO DAILY [facility] Last Admin: 04/10/20 06:25 Dose: 10 mg Documented by: Loratadine (Claritin) 10 mg PO DAILY PRN PRN PRN Reason: ALLERGIES Magnesium Hydroxide (Milk Of Magnesia) 30 ml PO DAILY PRN PRN PRN Reason: Constipation Melatonin (Melatonin) 10 mg PO QHS PRN PRN Reason: SLEEP Last Admin: 04/09/20 22:48 Dose: 10 mg Documented by: Metoprolol Tartrate (Lopressor (Beta Antonio)) 25 mg PO BID [facility] Last Admin: 04/10/20 11:03 Dose: 25 mg Documented by: Montelukast Sodium (Singulair) 10 mg PO QPM [facility] Last Admin: 04/09/20 21:21 Dose: 10 mg Documented by: Morphine Sulfate () 4 mg IV Q3H PRN PRN PRN Reason: Pain Score 6-10/10 Nitroglycerin (Nitrostat) 0.4 mg SUBLINGUAL Q5M PRN PRN Reason: Chest pain Ondansetron HCl (Zofran Odt) 4 mg PO Q8H PRN PRN PRN Reason: NAUSEA Ondansetron HCl (Zofran) 4 mg IV Q8H PRN PRN PRN Reason: NAUSEA/VOMITING Oxycodone HCl (Oxyir) 5 mg PO Q4H PRN PRN PRN Reason: Pain Score 4-5/10 Pantoprazole Sodium (Protonix) 40 mg PO DAILY PRN PRN PRN Reason: Indigestion [facility] Sodium Chloride () 10 - 40 ml IV UD PRN PRN Reason: SALINE FLUSH Last Admin: 04/10/20 06:29 Dose: 10 ml Documented by: OBSV E&M: [id number] Observation care discharge
--- NOTE | 2020-04-10 13:09 | CASEMGMT ---
This RN CM to room with HOWE form at this time, explanation done-pt voices understanding, and signed HOWE form at this time. Original to chart and copy to pt at this time. Pt voices no further questions/concerns/needs at this time. [place] DENISE DEAN
== END 2020-04-10 12:51 | disposition home or self-care (01) ==
LOC: ED 11:32 → ICU 13:18 → PCU 17:08
PROVIDERS: Physician Assistant; Admitting Provider Internal Medicine; Emergency Provider Emergency Medicine; PCP Family Medicine; Visit Provider Internal Medicine
DX: E86.0 Dehydration (principal); E87.6 Hypokalemia; I25.10 Atherosclerotic heart disease of native coronary artery without angina pectoris; I10 Essential (primary) hypertension; K44.9 Diaphragmatic hernia without obstruction or gangrene; E78.5 Hyperlipidemia, unspecified; Z87.891 Personal history of nicotine dependence; Z95.1 Presence of aortocoronary bypass graft; Z79.899 Other long term (current) drug therapy; Z79.02 Long term (current) use of antithrombotics/antiplatelets; Z79.82 Long term (current) use of aspirin; E11.65 Type 2 diabetes mellitus with hyperglycemia
CPT/HCPCS: 36415; 71045; 76705; 78452; 80053; 80061; 81001; 83735; 83880; 84484; 85025; 85027; 87635; 93005; 93017; 93306; 96361; 96374; 97802; 99218; 99285; A9500; G2023; J7030; Q9957; A4216; G0378; J2405; U0003

== ENCOUNTER 2021-01-01 10:45 | Outpatient (RCR) | payer MEDICARE, SELFPAY ==
[2020-09-10 15:12] VITALS: BMI 30.7
[2021-01-01] MEDS: COVID-19 VACC, MRNA(PFIZER)/PF 30 MCG/0.3 ML SYRINGE IM (16:16)
[2021-01-22] MEDS: COVID-19 VACC, MRNA(PFIZER)/PF 30 MCG/0.3 ML SYRINGE IM (15:57)
== END 2021-04-02 23:59 ==
LOC: IMMUN 10:45
PROVIDERS: PCP Family Medicine; Referring Provider Family Medicine; Visit Provider Family Medicine
DX: Z23 Encounter for immunization (principal)
CPT/HCPCS: 0001A; 0002A; 91300

== ENCOUNTER 2021-12-04 09:01 | Outpatient (CLI) | payer MEDICARE, SELFPAY ==
[2021-12-04 11:54] LABS: AST(SGOT) 19 U/L (15-37); Alanine Aminotransfer ALT/SGPT 32 U/L (16-61); Albumin, Serum 3.8 g/dL (3.2-5.0); Alkaline Phosphatase 71 U/L (45-117); Bilirubin, Direct 0.13 mg/dL (0.00-0.30); Cholesterol 137 mg/dL (200); Globulin 3.7 g/dL (2.2-4.2); High Density Lipoprotein 33 mg/dL; Protein, Total 7.5 g/dL (6.4-8.2); Triglycerides 136 mg/dL; Very Low Density Lipoprotein 27 mg/dL (5-40)
== END 2021-12-04 23:59 | disposition home or self-care (01) ==
PROVIDERS: PCP Family Medicine; Referring Provider Internal Medicine Cardiovascular Disease; Visit Provider Internal Medicine Cardiovascular Disease
DX: E78.00 Pure hypercholesterolemia, unspecified (principal); I71.4 Abdominal aortic aneurysm, without rupture; I10 Essential (primary) hypertension; I25.10 Atherosclerotic heart disease of native coronary artery without angina pectoris; E78.5 Hyperlipidemia, unspecified; Z95.1 Presence of aortocoronary bypass graft; Z95.5 Presence of coronary angioplasty implant and graft
CPT/HCPCS: 36415; 80061; 80076

== ENCOUNTER → 2022-05-12 | Outpatient (CLI) | payer MEDICARE, SELFPAY ==
[2022-05-12 11:22] LABS: ALB/GLOB Ratio 1.1 RATIO (0.9-2.4); AST(SGOT) 26 U/L (15-37); Alanine Aminotransfer ALT/SGPT 32 U/L (16-61); Albumin, Serum 3.9 g/dL (3.2-5.0); Alkaline Phosphatase 72 U/L (45-117); Anion Gap 7 (5-15); BUN 12 mg/dL (7-18); BUN/Creat Ratio 14.8 RATIO (10-20); Bilirubin, Direct 0.11 mg/dL (0.00-0.30); Chloride 105 mmol/L (98-107); Cholesterol 147 mg/dL (200); Creatinine, Serum 0.81 mg/dL (0.70-1.30); EST Glomerular Filtration Rate 101 mL/min (>60); Est Glom Filt Rate - Afr Amer 122 mL/min (>60); Globulin 3.6 g/dL (2.2-4.2); Glucose 114 mg/dL (74-106); High Density Lipoprotein 37 mg/dL; PSA,Total - Annual Screen 0.45 ng/mL (0.00-4.00); Potassium 3.9 mmol/L (3.5-5.1); Protein, Total 7.5 g/dL (6.4-8.2); Sodium Level 140 mmol/L (136-145); Thyroid Stim Hormone (TSH) 0.84 uIU/mL (0.358-3.74); Triglycerides 148 mg/dL; Very Low Density Lipoprotein 30 mg/dL (5-40)
[2022-05-12 11:47] LABS: Hepatitis C Antibody Non-Reactive (Nonreactive)
== END | disposition home or self-care (01) ==
LOC: LAB 09:56
PROVIDERS: PCP Family Medicine; Referring Provider Family Medicine; Visit Provider Family Medicine
DX: I10 Essential (primary) hypertension (principal); E78.5 Hyperlipidemia, unspecified; Z13.1 Encounter for screening for diabetes mellitus; Z13.6 Encounter for screening for cardiovascular disorders; Z12.5 Encounter for screening for malignant neoplasm of prostate; Z11.59 Encounter for screening for other viral diseases
CPT/HCPCS: 36415; 80053; 80061; 82248; 84153; 84443; 86803; G0103

== ENCOUNTER → 2022-11-26 | Outpatient (CLI) | payer MEDICARE, SELFPAY ==
[2022-11-26 11:44] LABS: AST(SGOT) 22 U/L (15-37); Alanine Aminotransfer ALT/SGPT 31 U/L (16-61); Albumin, Serum 3.6 g/dL (3.2-5.0); Alkaline Phosphatase 82 U/L (45-117); Cholesterol 145 mg/dL (200); Globulin 3.9 g/dL (2.2-4.2); High Density Lipoprotein 36 mg/dL; Protein, Total 7.5 g/dL (6.4-8.2); Triglycerides 106 mg/dL; Very Low Density Lipoprotein 21 mg/dL (5-40)
== END | disposition home or self-care (01) ==
LOC: LAB 10:43
PROVIDERS: PCP Family Medicine; Visit Provider Internal Medicine Cardiovascular Disease
DX: E78.5 Hyperlipidemia, unspecified (principal)
CPT/HCPCS: 36415; 80061; 80076

== ENCOUNTER → 2024-06-20 | Outpatient (CLI) | payer MEDICARE, SELFPAY ==
[2024-06-20 12:39] LABS: Anion Gap 10 (5-15); BUN 49 mg/dL (7-18); BUN/Creat Ratio 22.9 RATIO (10-20); Calcium,Total 9.8 mg/dL (8.5-10.1); Chloride 104 mmol/L (98-107); Creatinine, Serum 2.14 mg/dL (0.70-1.30); EST Glomerular Filtration Rate 33 mL/min (>60); Est Glom Filt Rate - Afr Amer 40 mL/min (>60); Glucose 136 mg/dL (74-106); Potassium 3.7 mmol/L (3.5-5.1); Sodium Level 137 mmol/L (136-145)
== END | disposition home or self-care (01) ==
LOC: LAB 11:23
PROVIDERS: PCP Family Medicine; Referring Provider Physician Assistant Medical; Visit Provider Physician Assistant Medical
DX: I10 Essential (primary) hypertension (principal)
CPT/HCPCS: 36415; 80048

== ENCOUNTER → 2024-06-24 | Outpatient (CLI) | payer MEDICARE, SELFPAY ==
[2024-06-24 12:58] LABS: Anion Gap 3 (5-15); BUN 24 mg/dL (7-18); BUN/Creat Ratio 17.1 RATIO (10-20); Calcium,Total 9.5 mg/dL (8.5-10.1); Chloride 107 mmol/L (98-107); EST Glomerular Filtration Rate 53 mL/min (>60); Est Glom Filt Rate - Afr Amer 64 mL/min (>60); Glucose 123 mg/dL (74-106); Potassium 4.5 mmol/L (3.5-5.1); Sodium Level 139 mmol/L (136-145)
== END | disposition home or self-care (01) ==
LOC: LAB 11:56
PROVIDERS: PCP Family Medicine; Referring Provider Physician Assistant Medical; Visit Provider Physician Assistant Medical
DX: I10 Essential (primary) hypertension (principal)
CPT/HCPCS: 36415; 80048